=== PATIENT | female | born 1940 | race Hispanic/Latino ===

== ENCOUNTER 2017-10-02 11:16 | Emergency (ER) | payer MEDICARE, BC ==
[2017-10-02] MEDS ORDERED: Meclizine HCl 25 MG TAB ONE (12:02)
[2017-10-02] MEDS ORDERED: Acetaminophen 500 MG TAB ONE (13:08)
== END 2017-10-02 13:07 | disposition home or self-care (01) ==
LOC: SCSER 11:16
DX: R42 Dizziness and giddiness (principal); R00.1 Bradycardia, unspecified; K21.9 Gastro-esophageal reflux disease without esophagitis; F32.9 Major depressive disorder, single episode, unspecified; Z79.899 Other long term (current) drug therapy
CPT/HCPCS: 93005

== ENCOUNTER 2017-10-07 09:49 | Outpatient (CLI) | payer MEDICARE, BC ==
--- NOTE | 2017-10-07 14:56 | MRI ---
MRI BRAIN WITHOUT CONTRAST: Date: 10/07/17 Multiplanar, multisequential imaging of brain obtained without IV enhancement. INDICATION: Memory impairment. COMPARISON: Comparison made to MRI of brain dated 11/30/14. FINDINGS: Mild cortical volume loss has a similar appearance to the prior exam. Ventricles remain of normal siz e and position, and are unchanged. There are scattered hyperintense foci in the white matter of both cerebral hemispheres consistent wit h mild chronic ischemic change. There continues to be a confluent area of T2 and FLAIR hyperintensity in the deep white matter extend ing to the subcortical white matter of the posterior right frontal lobe along the mid portion of the right lateral ventricle. This was described previously and is essentially unchanged. There is no evidence of restricted diffusion. The small focus of blooming artifact seen within the medial aspect of the left frontal lobe posterior ly is again seen. This was described previously and is stable. Considerations include small calcifica tion or focal hemosiderin deposition as noted previously. The intracranial internal carotid arteries and proximal cerebral arteries show flow-voids. Paranasal sinuses and mastoids are clear. IMPRESSION: 1. MRI findings are stable from the prior study of 11/30/14. There is mild chronic ischemic white ma tter changes in both cerebral hemispheres. A confluent area of high T2 signal in the white matter of the right frontal lobe is stable. POS: AUGIE
--- NOTE | 2017-10-11 15:28 | EEG ---
Referring Physician: DR. GILSON REYES EEG # [id number] PROCEDURE: Outpatient electroencephalogram PATIENT NAME: Charity Soler : 1940 DATE EEG DONE: 10/07/2017 INDICATION: Memory loss, vertigo, vision changes. EEG CLASSIFICATION: Normal awake and drowsy. STUDY REPORT: This is a 22-channel digital EEG recording utilizing 10-20 international electrode placement system on a patient who presents with memory loss, vertigo, vision changes. During wakefulness, the background activity consists of moderate amplitude dominant alpha rhythm of 9-10 Hz. It is symmetric and reactive in nature. It is mixed with some myogenic activity representing frontalis and temporalis muscles bilaterally. DROWSINESS AND SLEEP: Subject is able to attain periods of drowsiness with theta activity and decreased myogenic activity. There is no clear sleep recorded during this EEG. There is no asymmetry or paroxysmal activity noted. INDUCTION: HYPERVENTILATION: With good effort results in no significant change in the background activity. PHOTIC STIMULATION: No photic drive seen. EK per minute. IMPRESSION: THIS EEG IS CONSIDERED NORMAL AWAKE AND DROWSY EEG. THERE IS NO CLEAR EPILEPTIFORM ACTIVITY OR FOCAL ABNORMALITY NOTED. CLINICAL CORRELATION RECOMMENDED. Windows Laptop Technician: SHAHNAZ Compliance Professional: [email or web address] CORONA
== END 2017-10-07 09:50 | disposition home or self-care (01) ==
LOC: EEG 09:49
PROVIDERS: ATTEND Student in an Organized Health Care Education/Training Program
DX: R41.3 Other amnesia (principal); R42 Dizziness and giddiness; H53.9 Unspecified visual disturbance; G93.89 Other specified disorders of brain
CPT/HCPCS: 70551; 95816

== ENCOUNTER 2018-01-26 12:30 | Outpatient (CLI) | payer MEDICARE, BC | END 2018-01-26 12:31 | disposition home or self-care (01) | LOC: BICULT 12:30 | PROVIDERS: ATTEND Urology | DX: R31.29 Other microscopic hematuria (principal); N28.89 Other specified disorders of kidney and ureter | CPT/HCPCS: 76770 ==

== ENCOUNTER 2018-02-18 13:11 | Outpatient (CLI) | payer MEDICARE, BC ==
[~2018-02-18 13:11] MED LIST: ISOVUE-370 76%-LOCM 1 ML ONE
== END 2018-02-18 13:12 | disposition home or self-care (01) ==
LOC: BICCT 13:11
PROVIDERS: ATTEND Family Medicine
DX: E04.1 Nontoxic single thyroid nodule (principal); N28.9 Disorder of kidney and ureter, unspecified; K44.9 Diaphragmatic hernia without obstruction or gangrene; K57.90 Diverticulosis of intestine, part unspecified, without perforation or abscess without bleeding; R93.8 Abnormal findings on diagnostic imaging of other specified body structures
CPT/HCPCS: 74170; 76536; 82565

== ENCOUNTER 2018-03-10 18:00 | Outpatient (CLI) | payer MEDICARE, BC | END 2018-03-10 18:01 | disposition home or self-care (01) | LOC: SLEEPLAB 18:00 | PROVIDERS: ATTEND Family Medicine | DX: R53.83 Other fatigue (principal); R06.83 Snoring; G47.33 Obstructive sleep apnea (adult) (pediatric); I10 Essential (primary) hypertension; K21.9 Gastro-esophageal reflux disease without esophagitis; I25.10 Atherosclerotic heart disease of native coronary artery without angina pectoris | CPT/HCPCS: 95806 ==

== ENCOUNTER 2018-03-18 08:54 | Outpatient (CLI) | payer MEDICARE, BC ==
[2018-03-18] MEDS ORDERED: ISOVUE-370 76%-LOCM 1 ML ONE (14:21)
== END 2018-03-18 08:55 | disposition home or self-care (01) ==
LOC: BICCT 08:54
PROVIDERS: ATTEND Internal Medicine Cardiovascular Disease
DX: R09.89 Other specified symptoms and signs involving the circulatory and respiratory systems (principal); R94.30 Abnormal result of cardiovascular function study, unspecified
CPT/HCPCS: 70498

== ENCOUNTER 2018-04-19 19:30 | Outpatient (CLI) | payer MEDICARE, BC | END 2018-04-19 19:31 | disposition home or self-care (01) | LOC: SLEEPLAB 19:30 | PROVIDERS: ATTEND Family Medicine | DX: G47.33 Obstructive sleep apnea (adult) (pediatric) (principal); R53.83 Other fatigue; G47.61 Periodic limb movement disorder | CPT/HCPCS: 95810 ==

== ENCOUNTER 2019-12-08 07:21 | Outpatient (CLI) | payer MEDICARE, BC, OTHER ==
[2019-12-09 16:49] LABS: SARS-CoV-2 MS2 Positive; SARS-CoV-2 N Gene Negative; SARS-CoV-2 S Gene Negative; SARS-CoV-2 orf1ab Negative
== END 2019-12-08 07:22 | disposition home or self-care (01) ==
LOC: LABBT 07:21
PROVIDERS: ATTEND Ophthalmology Retina Specialist
DX: Z01.812 Encounter for preprocedural laboratory examination (principal); Z11.59 Encounter for screening for other viral diseases
CPT/HCPCS: 87635; U0003

== ENCOUNTER 2019-12-12 06:36 | Day surgery (SDC) | payer MEDICARE, BC ==
[2019-12-08 14:11] VITALS: BMI 30.2
[2019-12-12] MEDS ORDERED: EPINEPHrine 0.3 MG in Ophthalmic Irrigation Solution 500 ML IRR SCH (06:45)
[2019-12-12] MEDS ORDERED: Fentanyl 100 MCG/2 ML VIAL ONE (06:56)
[2019-12-12] MEDS ORDERED: Midazolam HCl 2 mg/2 ml Vial ONE (06:56)
[2019-12-12] MEDS ORDERED: Cyclopentolate 1% Opth Drop 2 ML BOT ONE (07:15)
[2019-12-12] MEDS ORDERED: Phenylephrine 2.5% Ophth Soln 5 ML BOT ONE (07:15)
[2019-12-12] MEDS ORDERED: Triamcinolone 40 MG/ML VIAL ONE (08:53)
[2019-12-12] MEDS ORDERED: Maxitrol 0.1% Opth Oint 3.5 GM TUBE ONE (08:53)
[2019-12-12] MEDS ORDERED: PROPOFOL 200 MG/20 ML VIAL ONE (08:53)
[2019-12-12] MEDS ORDERED: Lidocaine 4% PF 5 ML AMP ONE (08:53)
[2019-12-12] MEDS ORDERED: Lidocaine 1% PF 5 ML VIAL ONE (08:53)
[2019-12-12] MEDS ORDERED: Bupivacaine PF 0.75% SDV 10 ML ONE (08:53)
[2019-12-12] MEDS ORDERED: CEFAZOLIN 1 GM VIAL ONE (08:53)
--- NOTE | 2019-12-12 10:03 | OP ---
DATE OF PROCEDURE: 12/12/2019 PREOPERATIVE DIAGNOSIS: Vitreomacular traction, right eye. POSTOPERATIVE DIAGNOSIS: Vitreomacular traction, right eye. PROCEDURES PERFORMED: 1. A 25-gauge pars plana vitrectomy, right eye. 2. Membrane peel, right eye. ESTIMATED BLOOD LOSS: None. SPECIMENS REMOVED: None. COMPLICATIONS: None. ANESTHESIA: MAC with sub-Tenon's block. SUMMARY OF OPERATION: The patient was identified in the preoperative holding area, where the correct eye being the right eye was marked for surgery. The patient was taken to the operating room, where MAC anesthesia was induced. The right eye was prepped and draped in the usual sterile fashion for surgery. An inferonasal conjunctival peritomy was fashioned with Zohaib scissors for administration of sub-Tenon's block. The block consisted of 1:1 ratio of 4% lidocaine and 0.75% Marcaine. A total of 5 mL was administered. A standard 25-gauge pars plana vitrectomy platform was fashioned with trocars placed approximately 3.5 mm from the limbus. The infusion was noted to be within the vitreous cavity prior to being turned on to an infusion pressure of 30 mmHg. The light pipe and microvitrector were introduced in the eye under visualization of the BIOM viewing system. A careful core vitrectomy was performed. Subsequently, Kenalog was injected and a gentle posterior vitreous detachment was created with peeling across the fovea to allow for relaxation of the fovea. Following peeling, significant relaxation of the fovea was noted. A complete peripheral shave vitrectomy was subsequently performed. Following vitrectomy and a 360-degree scleral depressed exam of the periphery revealed no defects. The cannulas were sequentially removed and all sclerotomies were noted to be watertight. Subconjunctival Ancef and Kenalog were injected. The wire-clip lid speculum was removed followed by application of TobraDex ophthalmic ointment and a light patch and shield. The patient tolerated the procedure well, was taken to the outpatient recovery area in good condition. Job ID: [id number]
== END 2019-12-12 09:54 | disposition home or self-care (01) ==
LOC: SDC 06:36
PROVIDERS: ATTEND Ophthalmology Retina Specialist
PROC: 08T43ZZ Resection of Right Vitreous, Percutaneous Approach (ICD-10-PCS; principal; 2019-12-12)
PROC: 08NE3ZZ Release Right Retina, Percutaneous Approach (ICD-10-PCS; 2019-12-12)
DX: H43.821 Vitreomacular adhesion, right eye (principal); I10 Essential (primary) hypertension; K21.9 Gastro-esophageal reflux disease without esophagitis; F32.9 Major depressive disorder, single episode, unspecified; Z79.899 Other long term (current) drug therapy; Z88.1 Allergy status to other antibiotic agents; Z88.2 Allergy status to sulfonamides; Z88.5 Allergy status to narcotic agent; Z91.040 Latex allergy status
CPT/HCPCS: J0171; J0690; J2001; J2250; J2704; J3010; J3301; J3490

== ENCOUNTER 2020-03-08 06:31 | Outpatient (CLI) | payer MEDICARE, BC, OTHER ==
[2020-03-08 16:28] LABS: Anion Gap 14 mmol/L (10-20); BUN (Urea Nitrogen) 8 mg/dL (9.8-20.1); Calc. Creatinine Clearance 0 mL/min (70-130); Calcium 10.2 mg/dL (7.8-10.44); Carbon Dioxide 27 mmol/L (23-31); Chloride 106 mmol/L (98-107); Estimated GFR-MDRD 49; Glucose 106 mg/dL (83-110); Potassium 3.9 mmol/L (3.5-5.1); Sodium 143 mmol/L (136-145)
[2020-03-09 12:17] LABS: SARS-CoV-2 MS2 Positive; SARS-CoV-2 N Gene Negative; SARS-CoV-2 S Gene Negative; SARS-CoV-2 by NAA Not Detected (NotDetected); SARS-CoV-2 orf1ab Negative
--- NOTE | 2020-03-13 20:14 | EKG ---
Test Reason : Blood Pressure : / mmHG Vent. Rate : 052 BPM Atrial Rate : 052 BPM P-R Int : 202 ms QRS Dur : 092 ms QT Int : 502 ms P-R-T Axes : 038 -23 -10 degrees QTc Int : 466 ms Sinus bradycardia Poor anterior R wave progression Abnormal ECG Confirmed by HILLARY MICHELLE, DR. Stock ([id number]) on 03/13/2020 8:14:16 PM Referred By: LORENZO Confirmed By:DR. Dayami THORNTON MD
== END 2020-03-08 06:32 | disposition home or self-care (01) ==
LOC: LABBT 06:31
PROVIDERS: ATTEND Surgery
DX: Z01.818 Encounter for other preprocedural examination (principal); Z20.828 Contact with and (suspected) exposure to other viral communicable diseases; K44.9 Diaphragmatic hernia without obstruction or gangrene
CPT/HCPCS: 80048; 85025; 93005; U0003; 87635; 93010

== ENCOUNTER 2020-03-12 06:49 | Observation (INO) | payer MEDICARE, BC ==
[2020-03-07 13:59] VITALS: BMI 31.9
[2020-03-12] MEDS ORDERED: Fentanyl 250 MCG/5 ML VIAL ONE (08:53)
[2020-03-12] MEDS ORDERED: PROPOFOL 200 MG/20 ML VIAL ONE (09:02)
[2020-03-12] MEDS ORDERED: Ondansetron PF 4 MG/2 ML Vial ONE (09:02)
[2020-03-12] MEDS ORDERED: Succinylcholine Chloride 20 MG/ML 10 ml SYRINGE FS ONE (09:02)
[2020-03-12] MEDS ORDERED: EPHEDRINE 25 MG/5 ML SYRINGE ONE (09:02)
[2020-03-12] MEDS ORDERED: Rocuronium Bromide 10 MG/ML (10ML VIAL) ONE (09:02)
[2020-03-12] MEDS ORDERED: Lidocaine 1% PF 5 ML VIAL ONE (09:02)
[2020-03-12] MEDS ORDERED: Labetalol HCl 100 MG/20 ML VIAL ONE (09:02)
[2020-03-12] MEDS ORDERED: Glycopyrrolate 0.2 MG/ML 5 ML SYRINGE ONE ×2 (09:02)
[2020-03-12] MEDS ORDERED: Lidocaine 1% w/Epinephrine 1:100K 20 ML VIAL ONE (09:07)
[2020-03-12] MEDS ORDERED: Bupivacaine 0.25% HCL 30 ML VIAL ONE (09:07)
[2020-03-12] MEDS ORDERED: Promethazine HCl 25 MG/ML VIAL IM PRN ×2 (10:55→11:15)
[2020-03-12] MEDS ORDERED: Promethazine HCl 25 MG/ML VIAL SLOW IVP PRN (10:55)
[2020-03-12] MEDS ORDERED: Ondansetron HCl/PF 4 MG/2 ML Vial IVP PRN (10:55)
[2020-03-12] MEDS ORDERED: Morphine 2 MG/ML VIAL SLOW IVP PRN (11:15)
[2020-03-12] MEDS ORDERED: Dextrose 50% Abboject 50 ML SYRINGE SLOW IVP PRN (11:15)
[2020-03-12] MEDS ORDERED: Acetaminophen 325 MG/10.15 ML UDCUP PO PRN (11:15)
[2020-03-12] MEDS ORDERED: Ondansetron PF 4 MG/2 ML Vial IVP PRN (11:15)
[2020-03-12] MEDS ORDERED: hydrALAZINE 20 MG/ML VIAL SLOW IVP PRN (11:15)
[2020-03-12] MEDS ORDERED: Morphine 4 MG/ML VIAL SLOW IVP PRN (11:15)
[2020-03-12] MEDS ORDERED: Dextrose 5% in Water 1,000 ML IV PRN (11:15)
[2020-03-12] MEDS ORDERED: Fentanyl 100 MCG/2 ML VIAL ONE ×2 (11:19→11:48)
[2020-03-12] MEDS ORDERED: Pantoprazole 40 MG VIAL IVP SCH (12:00)
[2020-03-12] MEDS: Sodium Chloride 0.9% 1,000 ML IV SCH (13:38)
[2020-03-12] MEDS: traMADol HCl 50 MG TAB PO PRN ×2 (14:36→20:55)
[2020-03-12] MEDS ORDERED: Escitalopram Oxalate 10 mg Tablet PO SCH (21:00)
[2020-03-12] MEDS ORDERED: Leflunomide 10 mg Tablet PO SCH (21:00)
[2020-03-12] MEDS ORDERED: Enoxaparin Sodium 40 MG/0.4 ML SYRINGE SC SCH (21:00)
[2020-03-13] MEDS: Sodium Chloride 0.9% 1,000 ML IV SCH ×2 (03:06→14:54)
[2020-03-13] MEDS: traMADol HCl 50 MG TAB PO PRN ×3 (03:08→15:00)
--- NOTE | 2020-03-13 08:48 | PDOC.GSPN ---
Surgery Progress Note: Subj - Subjective Narrative: Ms. oSler is a 80 year old female who is post op day 1 from a laprascopic hiatal hernia repair. She complains of persistent abdominal soreness, particularly on the left side. She also complains of left shoulder pain since waking up from surgery. She did not sleep well last night secondary to pain. She has been able to ambulate and void without difficulty or pain. She is using the incentive spirometry. She is tolerating a full liquid diet without any nausea or vomiting. She reports that her acid reflux symptoms are improved currently. Denies any fever, chills, nausea, vomiting, diarrhea, dysuria, SOB, cough Surgery Progress Note: Obj - Vital signs Vital signs: Vital Signs - Most Recent Temp Pulse Resp BP Pulse Ox 98.0 F 71 16 134/62 92 L 03/13/20 07:19 03/13/20 07:19 03/13/20 07:19 03/13/20 07:19 03/13/20 07:19 - Physical Exam General: no distress, well developed, well nourished Cardiovascular: regular rate and rhythm Respiratory: clear to auscultation Abdomen: soft, positive bowel sounds, appropriately tender, other (incisional wounds with surrounding purple bruising, but no signs of infection) Surgery Progress Note: A/P - Plan Plan: s/p laprascopic hiatal hernia repair with Lester fundoplication and mesh placement: Patient is tolerating a full liquid diet well. Acid reflux symptoms are improved. Some mild abdominal tenderness/soreness. Will continue with antiemetics, PPI, and pain regime. Will discharge patient today and have her follow up in the office in 2 weeks.
[2020-03-13] MEDS ORDERED: Amlodipine 5 MG TAB PO SCH (09:00)
[2020-03-13] MEDS ORDERED: Pantoprazole 40 MG VIAL IVP SCH (09:00)
[2020-03-13] MEDS ORDERED: Losartan 25 MG TAB PO SCH (09:00)
[2020-03-13] MEDS ORDERED: Donepezil HCl 10 MG TAB PO SCH (09:00)
--- NOTE | 2020-03-13 11:24 | OP ---
DATE OF PROCEDURE: 03/12/2020 PREOPERATIVE DIAGNOSIS: Paraesophageal hiatal hernia. POSTOPERATIVE DIAGNOSIS: Paraesophageal hiatal hernia. PROCEDURE PERFORMED: Laparoscopic hiatal hernia repair with mesh and Flavio fundoplication. ANESTHESIA: General. ESTIMATED BLOOD LOSS: Minimal. COMPLICATIONS: None. SPECIMEN: None. FINDINGS: Normal postoperative EGD. TECHNIQUE: The patient was taken to the operating room and laid supine on the operating room table. After general anesthetic was obtained, the abdomen was prepped and draped in a sterile fashion. Left subcostal 5-mm Optiview trocar was placed in usual fashion without injury and high-flow pneumoperitoneum was obtained. A 5-mm port was placed above the umbilicus. Right and left abdominal 5 mm ports were all placed. Subcostal port switched out to an 8 mm port. All ports were placed under direct visualization. The Snake Liver retractor was brought into the right lower quadrant port and used to raise the liver off the GE junction. The gastrohepatic ligament was opened exposing the right umer of the diaphragm. There was a replaced right hepatic artery that was avoided during the dissection. The mediastinum was entered along the medial aspect of the right umer and the circumferential dissection of the esophagus was performed. The fundus of the stomach was up into the chest cavity, this was able to be dissected down. The stomach was then flipped over and the upper short gastrics were taken down exposing the left umer, posterior fundus, angle of His were completely dissected and the mediastinum was entered on the left side. The circumferential dissection of the esophagus was then finished bringing the GE junction and fundus all back into the abdominal cavity. A window was made posterior to the GE junction. The posterior crura were closed using two interrupted Ethibond sutures in the Ti-KNOT system. The tissue strength was less than ideal and so a piece of Strattice mesh was cut to 4 x 6 cm and placed over the posterior repair. It was affixed to the posterior diaphragmatic repair using Tisseel and the Tisseel mat. The fundus of the stomach was able to be passed through the posterior window and brought up anteriorly to form a 360-degree wrap. This was not twisted. There was no ischemia to it. It was a floppy wrap. Ethibond sutures were used to suture the wrap over the top anteriorly. The second suture obtained a small amount of the esophagus to hold the wrap in place. There was no ongoing bleeding. No damage to any intraabdominal structures. A 44-bougie had been placed for the wrap and hiatal hernia repair thus was removed. EGD scope was passed through esophagus, stomach, to the level of duodenum without obstruction, withdrawn into the proximal stomach; as it passes to the diaphragmatic hiatus, there was no significant stenosis. As it passed through the wrap at the GE junction, there was obvious wrap effect; however, it was not too tight. The EGD scope was used to decompress the stomach, it was pulled and removed. Liver retractor was removed without injury. All port sites were infiltrated using local anesthetic. All ports were removed under camera visualization. Pneumoperitoneum was let down. A 4-0 Monocryl and Dermabond used to close all skin incisions. The patient was sent to Recovery in stable condition. All instrument counts, needle counts, and lap counts were correct. Job ID: [id number]
[2020-03-13 15:44] VITALS: BP 141/61; TEMP 97.9
--- NOTE | 2020-03-13 22:16 | DIS ---
DATE OF ADMISSION: 03/12/2020 DATE OF DISCHARGE: 03/13/2020 ADMIT DIAGNOSIS: Hiatal hernia. DISCHARGE DIAGNOSIS: Hiatal hernia. PROCEDURE PERFORMED: Laparoscopic hiatal hernia repair with mesh and fundoplication by Dr. Olson without complication. CONDITION ON DISCHARGE: Improved. STAFF: Danny Olson MD HOSPITAL COURSE: On postop day #1, the patient is doing well. She is tolerating a liquid diet. She is complaining of some left shoulder pain. She is ambulatory. She will be discharged home. She will follow up with me in the office in 2 weeks. Job ID: [id number]
== END 2020-03-13 15:50 | disposition home or self-care (01) ==
LOC: SDC 06:49 → MERGE 10:00 → SURG A 10:53
PROVIDERS: ADMIT Surgery; ATTEND Surgery
PROC: 0BUT4JZ Supplement Diaphragm with Synthetic Substitute, Percutaneous Endoscopic Approach (ICD-10-PCS; principal; 2020-03-12)
PROC: 0DV44ZZ Restriction of Esophagogastric Junction, Percutaneous Endoscopic Approach (ICD-10-PCS; 2020-03-12)
DX: K44.9 Diaphragmatic hernia without obstruction or gangrene (principal); I10 Essential (primary) hypertension; I25.10 Atherosclerotic heart disease of native coronary artery without angina pectoris; E78.5 Hyperlipidemia, unspecified; E66.9 Obesity, unspecified; F32.9 Major depressive disorder, single episode, unspecified; Z88.1 Allergy status to other antibiotic agents; Z79.82 Long term (current) use of aspirin; Z79.899 Other long term (current) drug therapy; Z88.2 Allergy status to sulfonamides; Z88.4 Allergy status to anesthetic agent; Z88.5 Allergy status to narcotic agent; Z91.040 Latex allergy status; Z91.048 Other nonmedicinal substance allergy status
CPT/HCPCS: 43282; Q4130; 96361; 96372; 96375; 96376; C9113; G0378; J0690; J1650; J2405; J2704; J3010; S0020

== ENCOUNTER 2020-03-25 14:05 | Emergency (ER) | payer MEDICARE, BC ==
[~2020-03-25 14:05] MED LIST changes: -ISOVUE-370 76%-LOCM 1 ML ONE; +Iopamidol-370 76% 500 ML 1 ML ONE
[2020-03-25 15:02] LABS: #Basophils 0.1 thou/uL (0.0-0.2); #Eosinphils 0.2 thou/uL (0.0-0.7); #Lymphocytes 1.2 thou/uL (1.20-3.40); #Monocytes 0.4 thou/uL (0.11-0.59); #Neutrophils 4.1 thou/uL (1.40-6.50); %Basophils 1.3 % (0.0-1.0); %Eosinophils 3.2 % (0.0-10.0); %Lymphocytes 20.2 % (21.0-51.0); %Monocytes 6.8 % (0.0-10.0); %Neutrophils 68.5 % (42.0-75.0); Hemoglobin 12.3 g/dL (12.0-16.0); Mean Corpuscular Hemoglobin 32.6 pg (27.0-31.0); Mean Corpuscular Volume 98.6 fL (78.0-98.0); Platelet Count 170 thou/uL (130-400); RBC Distribution Width 13.6 % (11.5-14.5); Red Blood Cell (RBC) Count 3.77 mill/uL (4.20-5.40)
--- NOTE | 2020-03-25 15:05 | RAD ---
PORTABLE CHEST 1 VIEW: Date: 03/25/2020 Time 1430 hours HISTORY: Epigastric pain. Patient had hernia surgery 2 weeks ago. COMPARISON: 07/02/2016. FINDINGS: The heart is enlarged. The aorta is tortuous. No focal areas of consolidation, pneumothoraces, ranjith pulmonary edema, or pleural effusions are seen. There are postop changes of right rotator cuff repair . IMPRESSION: No acute process. POS: OFF
[2020-03-25 15:27] LABS: ALT (SGPT) 19 U/L (8-55); AST (SGOT) 22 U/L (5-34); Albumin 3.5 g/dL (3.4-4.8); Alkaline Phosphatase 85 U/L (40-110); Anion Gap 14 mmol/L (10-20); BUN (Urea Nitrogen) 8 mg/dL (9.8-20.1); Bilirubin, Total 0.6 mg/dL (0.2-1.2); CK (CPK) 58 U/L (29-168); Calc. Creatinine Clearance 0 mL/min (70-130); Calcium 9.4 mg/dL (7.8-10.44); Carbon Dioxide 22 mmol/L (23-31); Chloride 109 mmol/L (98-107); Estimated GFR-MDRD 55; Globulin 2.7 g/dL (2.4-3.5); Glucose 123 mg/dL (83-110); Lipase 17 U/L (8-78); Protein, Total 6.2 g/dL (6.0-8.3); Sodium 140 mmol/L (136-145)
--- NOTE | 2020-03-25 16:12 | CT ---
CT ABDOMEN AND PELVIS WITH IV CONTRAST 03/25/2020 CLINICAL INFORMATION: Diarrhea. Weakness. COMPARISON: 02/18/2018 Technique: Multiple contiguous axial CT images are obtained through the abdomen and pelvis with IV contrast. Cor onal reformatted images are provided. FINDINGS: Lower Chest: Tiny bilateral pleural effusions are seen. There has been interval postoperative changes related to repair of hiatal hernia. There is fluid seen within the lower posterior mediastinum just posterior to the level of the esophagus. Vessels: Minimal vascular calcifications in the abdominal aorta. The abdominal aorta is normal in neelam iber. Abdomen: Portal vein:Patent Gallbladder: Surgically absent. Liver: within normal limits. Spleen: within normal limits. Pancreas: within normal limits. Adrenals: within normal limits. Kidneys: Lobulated appearance of each kidney. No enhancing renal lesion is seen, and there is no hydr onephrosis. Bowel: There is anastomosis in the region of the rectum. There is colonic diverticulosis. Pericolonic inflammatory changes are seen adjacent to the ascending colon in the region of multiple colonic diverticuli. In addition, there is suggested mild areas of thickening involving the ascending colon, and these findings are worrisome for diverticulitis. Appendix: Not visualized, but no secondary signs are seen to suggest appendicitis. Peritoneum: No ascites or free air; no fluid collection. Mesentery and Retroperitoneum: No enlarged mesenteric or retroperitoneal lymph nodes. Abdominal Wall: Tiny fat-containing subumbilical ventral abdominal wall hernia. Pelvis: Reproductive Organs: Coarse dense calcifications are seen in the uterus likely to calcified uterine f ibroids. Bladder: within normal limits. Bones: Degenerative changes in the thoracic and lumbar spine with grade 1 anterolisthesis of L4 on L5 measuring 9 mm. IMPRESSION: 1. Evidence of diverticulitis involving the ascending colon. 2. Tiny bilateral pleural effusions. 3. Postoperative changes related to surgical repair of a hiatal hernia with findings likely due to fu ndoplication type procedure. There is fluid seen within the posterior inferior mediastinum. 4. Postcholecystectomy changes. 5. Evidence of an anastomotic suture in the region of the rectum.
== END 2020-03-25 16:55 | disposition home or self-care (01) ==
LOC: ERS 14:05
DX: K57.32 Diverticulitis of large intestine without perforation or abscess without bleeding (principal); K21.9 Gastro-esophageal reflux disease without esophagitis; M19.90 Unspecified osteoarthritis, unspecified site; F32.9 Major depressive disorder, single episode, unspecified; Z79.82 Long term (current) use of aspirin; Z79.899 Other long term (current) drug therapy
CPT/HCPCS: 36415; 71045; 74177; 80053; 82550; 83690; 84484; 85025; 93005; Q9967

== ENCOUNTER 2020-03-26 14:27 | Inpatient (IN) | payer MEDICARE, BC, OTHER ==
[2020-03-26] MEDS ORDERED: Sodium Chloride 0.9% 1,000 ML IV SCH (15:30)
[2020-03-26] MEDS ORDERED: Ondansetron ODT 4 MG TAB PO PRN (15:31)
[2020-03-26] MEDS ORDERED: Ondansetron PF 4 MG/2 ML Vial IVP PRN ×2 (15:31→19:59)
[2020-03-26] MEDS ORDERED: Piperacillin/Tazobactam 3.375 GM VIAL ONE (16:21)
[2020-03-26] MEDS: Piperacillin/Tazobactam 3.375 GM in Sodium Chloride 0.9% 100 ML IVPB SCH ×2 (16:33→20:02)
[2020-03-26] MEDS ORDERED: Morphine 4 MG/ML VIAL SLOW IVP PRN (19:59)
[2020-03-26] MEDS ORDERED: Promethazine HCl 25 MG/ML VIAL IM PRN (19:59)
[2020-03-26] MEDS ORDERED: Dextrose 50% Abboject 50 ML SYRINGE SLOW IVP PRN (19:59)
[2020-03-26] MEDS ORDERED: Acetaminophen 325 MG TAB PO PRN (19:59)
[2020-03-26] MEDS ORDERED: Morphine 2 MG/ML VIAL SLOW IVP PRN (19:59)
[2020-03-26] MEDS ORDERED: hydrALAZINE 20 MG/ML VIAL SLOW IVP PRN (19:59)
[2020-03-26] MEDS ORDERED: Dextrose 5% in Water 1,000 ML IV PRN (19:59)
[2020-03-26] MEDS: D5 1/2 NS w/20 mEq KCL 1,000 ML IV SCH (20:01)
[2020-03-26] MEDS ORDERED: traMADol HCl 50 MG TAB PO PRN (20:02)
[2020-03-26] MEDS: Escitalopram Oxalate 10 mg Tablet PO SCH (20:29)
[2020-03-26] MEDS: Leflunomide 10 mg Tablet PO SCH (20:29)
[2020-03-26 21:11] VITALS: BMI 25.0
--- NOTE | 2020-03-27 01:14 | HP ---
CHIEF COMPLAINT: Nausea, diarrhea, weakness. HISTORY OF PRESENT ILLNESS: This is a 80-year-old female with a history of recent large paraesophageal hiatal hernia repair with mesh and fundoplication for severe dysphagia and acid reflux. She developed dizziness, weakness that started two days ago. She was seen in emergency department last night with abdominal pain mostly in the upper abdomen, but also in the right abdomen, made worse by breathing deep. She was seen at the [facility], where CT of the abdomen showed question of ascending colon diverticulitis, normal postop changes, no pneumonia. Chest x-ray was clear. Labs were within normal limits. She is being admitted for weakness, nausea, and volume resuscitation. She stated that she has had difficulty with solid foods going down, even liquids were difficult today. PAST MEDICAL HISTORY: Includes hypertension, chronic pain, GERD, hiatal hernia, thyroid nodule, mild obstructive sleep apnea. PAST SURGICAL HISTORY: Left shoulder, cholecystectomy, left knee arthroscopy, forearm reconstruction for trauma, hemorrhoidectomy, and cardiac stent placement. MEDICATIONS: Taken daily, see list. ALLERGIES: INCLUDE CODEINE, CIPRO, AND LATEX. REVIEW OF SYSTEMS: Otherwise negative. PHYSICAL EXAMINATION: HEENT: Sclerae are anicteric. Oropharynx clear. NECK: No lymphadenopathy. CHEST: Clear. HEART: Regular rate. ABDOMEN: Soft. Her wounds are healing well without infection. She has some mild ecchymoses around them. EXTREMITIES: No ischemia or edema to extremities. IMAGING STUDIES: CT scan yesterday showed postop changes in the upper abdomen, small amount of fluid without air in the mediastinum and area of previous hernia repair. Questionable ascending colon diverticulitis. Chest x-ray normal. ASSESSMENT: Nausea, weakness, severe diarrhea, status post hiatal hernia repair. PLAN: Admit for IV fluid resuscitation. Check her stool for C diff. We will do IV Zosyn for now. I wonder whether the Augmentin and Flagyl were contributing to her nausea. We will have Physical Therapy work with her tomorrow. I suspect she will feel better after some volume resuscitation. Job ID: [id number]
[2020-03-27] MEDS: Piperacillin/Tazobactam 3.375 GM in Sodium Chloride 0.9% 100 ML IVPB SCH (03:00)
[2020-03-27 06:08] LABS: Anion Gap 12 mmol/L (10-20); BUN (Urea Nitrogen) 6 mg/dL (9.8-20.1); Calc. Creatinine Clearance 57 mL/min (70-130); Calcium 8.7 mg/dL (7.8-10.44); Carbon Dioxide 20 mmol/L (23-31); Chloride 111 mmol/L (98-107); Estimated GFR-MDRD 63; Glucose 97 mg/dL (83-110); Potassium 3.7 mmol/L (3.5-5.1); Sodium 139 mmol/L (136-145)
[2020-03-27] MEDS: Pantoprazole 40 MG VIAL IVP SCH (08:05)
[2020-03-27] MEDS: D5 1/2 NS w/20 mEq KCL 1,000 ML IV SCH (08:05)
[2020-03-27] MEDS ORDERED: D5 1/2 NS w/20 mEq KCL 1,000 ML IV SCH (08:05)
[2020-03-27] MEDS: Losartan 25 MG TAB PO SCH (08:05)
[2020-03-27] MEDS: Amlodipine 5 MG TAB PO SCH (08:05)
[2020-03-27] MEDS: Donepezil HCl 10 MG TAB PO SCH (08:05)
[2020-03-27] MEDS: Enoxaparin Sodium 40 MG/0.4 ML SYRINGE SC SCH (08:05)
--- NOTE | 2020-03-27 08:10 | PRG ---
DATE OF SERVICE: 03/27/2020 SUBJECTIVE: Ms. Soler was admitted for nausea, diarrhea, failure to thrive. She feels slightly improved, but she is still complaining of fairly significant diarrhea. Her Clostridium difficile is negative. OBJECTIVE: VITAL SIGNS: She is afebrile. Vital signs are stable. ABDOMEN: Soft, nontender. Her wounds are healing well. ASSESSMENT: Nausea, improved; diarrhea, persistent; weakness, improved. PLAN: She is complaining of some muscle spasm in the back. We will write for a little muscle relaxant. We will start probiotic, discontinue antibiotics. Job ID: [id number]
[2020-03-27] MEDS: Cyclobenzaprine 10 MG TAB PO PRN ×2 (08:17→16:01)
[2020-03-27] MEDS: Saccharomyces boulardii 250 MG CAP PO SCH (08:17)
[2020-03-27 12:02] LABS: SARS-CoV-2 MS2 Positive; SARS-CoV-2 N Gene Negative; SARS-CoV-2 S Gene Negative; SARS-CoV-2 by NAA Not Detected (NotDetected); SARS-CoV-2 orf1ab Negative
[2020-03-27] MEDS: Leflunomide 10 mg Tablet PO SCH (21:22)
[2020-03-27] MEDS: Escitalopram Oxalate 10 mg Tablet PO SCH (21:22)
[2020-03-28] MEDS: Amlodipine 5 MG TAB PO SCH (08:12)
[2020-03-28] MEDS: Losartan 25 MG TAB PO SCH (08:13)
[2020-03-28] MEDS: Donepezil HCl 10 MG TAB PO SCH (08:13)
[2020-03-28] MEDS: Enoxaparin Sodium 40 MG/0.4 ML SYRINGE SC SCH (08:13)
[2020-03-28] MEDS: Pantoprazole 40 MG VIAL IVP SCH (08:14)
[2020-03-28] MEDS: Saccharomyces boulardii 250 MG CAP PO SCH (08:14)
[2020-03-28] MEDS ORDERED: Diphenoxylate HCl/Atropine Tablet PO PRN (10:10)
[2020-03-28] MEDS ORDERED: Diphenoxylate HCl/Atropine Tablet PO SCH (10:15)
--- NOTE | 2020-03-28 10:26 | PRG ---
DATE OF SERVICE: SUBJECTIVE: Ms. Soler states that her back pain is slightly improved. She has no abdominal pain. She is still concerned about her diarrhea. Her C diff was negative. OBJECTIVE: VITAL SIGNS: She is afebrile. Vital signs are stable. ABDOMEN: Soft, minimally distended, nontender. Wounds are healing well. ASSESSMENT: 1. Nausea, vomiting, weakness. 2. Diarrhea, Clostridium difficile negative. PLAN: We will add Lomotil. Continue GI soft diet. Continue to ambulate today home versus shelter tomorrow. Job ID: [id number]
[2020-03-28] MEDS: Cyclobenzaprine 10 MG TAB PO PRN ×2 (11:52→20:22)
[2020-03-28] MEDS: Leflunomide 10 mg Tablet PO SCH (20:16)
[2020-03-28] MEDS: Escitalopram Oxalate 10 mg Tablet PO SCH (20:16)
[2020-03-29] MEDS: Amlodipine 5 MG TAB PO SCH (08:19)
[2020-03-29] MEDS: Losartan 25 MG TAB PO SCH (08:19)
[2020-03-29] MEDS: Donepezil HCl 10 MG TAB PO SCH (08:19)
[2020-03-29] MEDS: Enoxaparin Sodium 40 MG/0.4 ML SYRINGE SC SCH (08:19)
[2020-03-29] MEDS: Saccharomyces boulardii 250 MG CAP PO SCH (08:20)
[2020-03-29] MEDS: Pantoprazole 40 MG VIAL IVP SCH (08:20)
[2020-03-29 16:04] VITALS: BP 129/82; TEMP 98.4
--- NOTE | 2020-04-01 06:34 | DIS ---
DATE OF ADMISSION: 03/28/2020 DATE OF DISCHARGE: 03/29/2020 DIAGNOSES: Nausea, diarrhea, failure to thrive, status post hiatal hernia repair by Wesley. STAFF: Dr. Olson. CONDITION ON DISCHARGE: Improved. HOSPITAL COURSE: The patient was admitted. We put her on some IV fluids, she felt better. She also had some back spasms that Flexeril helped with. She tolerated regular diet without difficulty. Her diarrhea improved with one dose of Lomotil. She is being discharged home. She can take Imodium once a day p.r.n. more than five liquid stools. Her Clostridium difficile was negative. I sent Flexeril over to her pharmacy, but encouraged her not to take it more than once a day. She will follow up with me in 2 weeks. Job ID: [id number]
== END 2020-03-29 16:22 | disposition home or self-care (01) | DRG 948 ==
LOC: ERS 14:27 → ERHOLD 14:54 → T4-A 19:40 → OBSVTOIN 03-28 08:00
PROVIDERS: ADMIT Surgery; ATTEND Surgery
DX: R53.1 Weakness (principal); R19.7 Diarrhea, unspecified; K21.9 Gastro-esophageal reflux disease without esophagitis; E86.0 Dehydration; R11.2 Nausea with vomiting, unspecified; I10 Essential (primary) hypertension; G47.33 Obstructive sleep apnea (adult) (pediatric); K44.9 Diaphragmatic hernia without obstruction or gangrene; G89.29 Other chronic pain; R62.7 Adult failure to thrive; Z90.49 Acquired absence of other specified parts of digestive tract; Z88.6 Allergy status to analgesic agent; Z91.040 Latex allergy status; Z88.1 Allergy status to other antibiotic agents; Z95.5 Presence of coronary angioplasty implant and graft; Z98.890 Other specified postprocedural states; Z68.25 Body mass index [BMI] 25.0-25.9, adult; Z88.2 Allergy status to sulfonamides; Z79.82 Long term (current) use of aspirin; Z79.899 Other long term (current) drug therapy
CPT/HCPCS: 36415; 71045; 74177; 80048; 80053; 82550; 83690; 84484; 85025; 87324; 87449; 87635; 93005; 96372; 96374; 96375; 96376; C9113; G0378; J1650; J2543; J3480; J3490; Q9967; U0003

== ENCOUNTER 2020-04-26 07:26 | Outpatient (CLI) | payer MEDICARE, BC ==
--- NOTE | 2020-04-26 08:55 | CT ---
CT abdomen and pelvis with IV and oral contrast HISTORY: Diarrhea. Lower abdomen pain. COMPARISON: 03/25/2020. FINDINGS: Postoperative changes at the GE junction are again demonstrated with a small hiatal hernia. Small amount of fluid at the lower posterior mediastinum adjacent to the lower esophagus and hiatal hernia is similar in appearance to the prior study. No complication of the fluid is apparent. Gallbladder is surgically absent. Solid organs of the abdomen are intact. An irregular shaped 1.7 cm calcification associated with the left side of the uterine body likely represents a degenerative fibroid. Large amount stool distends the rectum. Diverticula arise from the colon. Area of inflammati on involving the right colon on the prior study has resolved with minimal residual fat stranding. At the lower left colon, there is subtle circumferential wall thickening with minimal adjacent fat st randing. No free air or free fluid. Degenerative changes of lumbar spine. Urinary bladder is unremarkable. IMPRESSION : Very subtle wall thickening/inflammation involving the lower left colon/sigmoid colon. Resolving/mini mal diverticulitis? No evidence of complication. Near complete resolution of the previously described inflammation associated with the right colon. Small amount of fluid at the lower mediastinum adjacent to the GE junction is stable without evidence of complication. Mild fibroid involvement of the uterus.
[2020-04-26] MEDS ORDERED: Iopamidol 370 76% 100 ML VIAL ONE (15:22)
== END 2020-04-26 07:27 | disposition home or self-care (01) ==
LOC: CT 07:26
PROVIDERS: ATTEND Physician Assistant Medical
DX: N39.0 Urinary tract infection, site not specified (principal); R19.7 Diarrhea, unspecified; R10.30 Lower abdominal pain, unspecified; R10.13 Epigastric pain; D25.9 Leiomyoma of uterus, unspecified
CPT/HCPCS: 74177; 82565; Q9967

== ENCOUNTER 2021-04-21 14:34 | Outpatient (CLI) | payer MEDICARE, BC | END 2021-04-21 14:35 | disposition home or self-care (01) | LOC: RAD 14:34 | PROVIDERS: ATTEND Orthopaedic Surgery | DX: M54.50 Low back pain, unspecified (principal); M47.816 Spondylosis without myelopathy or radiculopathy, lumbar region | CPT/HCPCS: 72100 ==

== ENCOUNTER 2021-06-20 13:12 | Outpatient (CLI) | payer MEDICARE, BC | END 2021-06-20 13:13 | disposition home or self-care (01) | LOC: RAD 13:12 | PROVIDERS: ATTEND Internal Medicine Gastroenterology | DX: K58.9 Irritable bowel syndrome, unspecified (principal); R13.10 Dysphagia, unspecified; K86.81 Exocrine pancreatic insufficiency; F43.9 Reaction to severe stress, unspecified; K44.9 Diaphragmatic hernia without obstruction or gangrene | CPT/HCPCS: 74220 ==

== ENCOUNTER 2021-07-03 14:57 | Outpatient (CLI) | payer MEDICARE, BC ==
[2021-07-04 11:37] LABS: SARS-CoV-2 PCR by NAA Not Detected (NotDetected)
== END 2021-07-03 14:58 | disposition home or self-care (01) ==
LOC: LABBT 14:57
PROVIDERS: ATTEND Internal Medicine Gastroenterology
DX: Z01.812 Encounter for preprocedural laboratory examination (principal); R13.10 Dysphagia, unspecified; R93.3 Abnormal findings on diagnostic imaging of other parts of digestive tract; Z20.822 Contact with and (suspected) exposure to COVID-19
CPT/HCPCS: U0003; U0005

== ENCOUNTER → 2021-07-07 | Day surgery (SDC) | payer MEDICARE, BC | LOC: SDC 12:33 | PROVIDERS: ATTEND Internal Medicine Gastroenterology | DX: R13.10 Dysphagia, unspecified (principal); R93.3 Abnormal findings on diagnostic imaging of other parts of digestive tract; Z88.1 Allergy status to other antibiotic agents; Z88.2 Allergy status to sulfonamides; Z88.4 Allergy status to anesthetic agent; Z88.5 Allergy status to narcotic agent; Z91.040 Latex allergy status | CPT/HCPCS: 91010 ==

== ENCOUNTER 2021-08-06 10:23 | Outpatient (CLI) | payer MEDICARE, BC ==
[2021-08-06 12:30] LABS: Bilirubin Neg (Negative); Blood, Urine Negative (Negative); Clarity Clear (Clear); Glucose, Urine (Dipstick) Normal (Negative); Ketone, Urine Negative (Negative); Leukocyte Negative (Negative); Nitrite Negative (Negative); Protein, Urine (Dipstick) Negative (Neg-Trace); Urobilinogen Normal mg/dL (Less than 2)
[2021-08-06 12:34] LABS: Hemoglobin 13.1 g/dL (12.0-15.5); Mean Corpuscular HGB CONC 32.7 g/dL (32.0-36.0); Mean Corpuscular Hemoglobin 32.2 pg (27.0-33.0); Mean Corpuscular Volume 98.5 fl (81.6-98.3); Mean Platelet Volume 11.3 fl (7.4-10.4); Platelet Count 161 10x3/uL (150-450); RBC Distribution Width 13.7 % (11.5-14.5); Red Blood Cell (RBC) Count 4.07 10x6/uL (3.90-5.03); White Blood Cell (WBC) Count 4.6 10x3/uL (3.5-10.5)
[2021-08-06 12:40] LABS: Bacteria/HPF None Seen HPF (None Seen); RBC/HPF 0-3 HPF (0-3); Squamous Epithelial 0-3 HPF (0-3); WBC/HPF 0-3 HPF (0-3)
[2021-08-06 12:47] LABS: INR-International Normal Ratio 0.9; PTT 24.1 sec (22.0-33.0); Prothrombin Time 10.5 sec (9.5-12.1)
[2021-08-06 12:51] LABS: Anion Gap 13 mmol/L (10-20); BUN (Urea Nitrogen) 10 mg/dL (9.8-20.1); Calc. Creatinine Clearance 0 mL/min (70-130); Calcium 11.5 mg/dL (7.8-10.44); Carbon Dioxide 29 mmol/L (23-31); Chloride 106 mmol/L (98-107); Glucose 94 mg/dL (83-110); Potassium 4.2 mmol/L (3.5-5.1); Sodium 144 mmol/L (136-145)
[2021-08-06 17:42] LABS: SARS-CoV-2 PCR by NAA Not Detected (NotDetected)
== END 2021-08-06 10:24 | disposition home or self-care (01) ==
LOC: LABBT 10:23
PROVIDERS: ATTEND Urology
DX: Z01.818 Encounter for other preprocedural examination (principal); I25.10 Atherosclerotic heart disease of native coronary artery without angina pectoris; M17.11 Unilateral primary osteoarthritis, right knee; N18.30 Chronic kidney disease, stage 3 unspecified; N39.46 Mixed incontinence; M85.80 Other specified disorders of bone density and structure, unspecified site; Z78.0 Asymptomatic menopausal state; Z20.822 Contact with and (suspected) exposure to COVID-19
CPT/HCPCS: 80048; 81001; 85027; 85610; 85730; 87086; 93005; U0003; U0005; 93010

== ENCOUNTER 2021-08-07 06:29 | Day surgery (SDC) | payer MEDICARE, BC ==
[2021-08-07] MEDS ORDERED: Fentanyl 100 MCG/2 ML VIAL ONE (06:44)
[2021-08-07] MEDS ORDERED: Neomycin-Polymyxin 1 ML AMP ONE (06:47)
[2021-08-07] MEDS ORDERED: Bupivacaine 0.25% HCL 30 ML VIAL ONE (06:47)
[2021-08-07] MEDS ORDERED: CEFAZOLIN 1 GM VIAL ONE (07:32)
[2021-08-07] MEDS ORDERED: Sodium Chloride 0.9% 100 ML ONE (07:33)
[2021-08-07] MEDS ORDERED: HYDROcodone/Acetaminophen 5/325 mg Tablet ONE (11:14)
== END 2021-08-07 11:51 | disposition home or self-care (01) ==
LOC: SDC 06:29
PROVIDERS: ATTEND Urology
PROC: 01HY0MZ Insertion of Neurostimulator Lead into Peripheral Nerve, Open Approach (ICD-10-PCS; principal; 2021-08-07)
DX: N32.81 Overactive bladder (principal); N39.46 Mixed incontinence; M85.80 Other specified disorders of bone density and structure, unspecified site; I12.9 Hypertensive chronic kidney disease with stage 1 through stage 4 chronic kidney disease, or unspecified chronic kidney disease; N18.30 Chronic kidney disease, stage 3 unspecified; M17.11 Unilateral primary osteoarthritis, right knee; F17.200 Nicotine dependence, unspecified, uncomplicated; I25.10 Atherosclerotic heart disease of native coronary artery without angina pectoris; G47.33 Obstructive sleep apnea (adult) (pediatric); K21.9 Gastro-esophageal reflux disease without esophagitis; Z79.82 Long term (current) use of aspirin; Z79.899 Other long term (current) drug therapy; Z88.1 Allergy status to other antibiotic agents; Z88.2 Allergy status to sulfonamides; Z88.5 Allergy status to narcotic agent; Z91.040 Latex allergy status; Z95.5 Presence of coronary angioplasty implant and graft
CPT/HCPCS: 72220; 76000; C1897; J0690; J3010; J3490; S0020

== ENCOUNTER 2021-08-12 11:40 | Outpatient (CLI) | payer MEDICARE, BC ==
[2021-08-12 23:10] LABS: SARS-CoV-2 PCR by NAA Not Detected (NotDetected)
== END 2021-08-12 11:41 | disposition home or self-care (01) ==
LOC: LABBT 11:40
PROVIDERS: ATTEND Urology
DX: Z01.812 Encounter for preprocedural laboratory examination (principal); N39.41 Urge incontinence; N39.46 Mixed incontinence; M81.0 Age-related osteoporosis without current pathological fracture; N18.30 Chronic kidney disease, stage 3 unspecified; I25.10 Atherosclerotic heart disease of native coronary artery without angina pectoris; M17.11 Unilateral primary osteoarthritis, right knee; Z20.822 Contact with and (suspected) exposure to COVID-19
CPT/HCPCS: U0003; U0005

== ENCOUNTER 2021-08-14 06:46 | Day surgery (SDC) | payer MEDICARE, BC ==
[2021-08-05 10:23] VITALS: BMI 26.8
[2021-08-14] MEDS ORDERED: Famotidine/PF 20 mg/2ml Vial ONE (08:18)
[2021-08-14] MEDS ORDERED: Fentanyl 100 MCG/2 ML VIAL ONE (09:28)
[2021-08-14] MEDS ORDERED: Neomycin-Polymyxin 1 ML AMP ONE (09:36)
[2021-08-14] MEDS ORDERED: Bupivacaine 0.25% HCL 30 ML VIAL ONE (09:36)
[2021-08-14] MEDS ORDERED: CEFAZOLIN 1 GM VIAL ONE (09:50)
[2021-08-14] MEDS ORDERED: Sodium Chloride 0.9% 100 ML ONE (09:54)
[2021-08-14] MEDS ORDERED: Ondansetron PF 4 MG/2 ML Vial ONE (10:00)
[2021-08-14] MEDS ORDERED: PROPOFOL 200 MG/20 ML VIAL ONE (10:00)
[2021-08-14] MEDS ORDERED: Lidocaine 1% PF 5 ML VIAL ONE (10:00)
[2021-08-14] MEDS ORDERED: Dexamethasone 20 MG/5 ML VIAL ONE (10:00)
[2021-08-14] MEDS ORDERED: Succinylcholine 200 MG/10 ml SYRINGE FS ONE (10:00)
[2021-08-14] MEDS ORDERED: Glycopyrrolate 0.2 MG/ML 5 ML SYRINGE ONE (10:00)
[2021-08-14] MEDS ORDERED: Bacitracin Zinc Ointment 30 gm TUBE ONE (10:50)
== END 2021-08-14 14:00 | disposition home or self-care (01) ==
LOC: SDC 06:46
PROVIDERS: ATTEND Urology
PROC: 0JH70BZ Insertion of Single Array Stimulator Generator into Back Subcutaneous Tissue and Fascia, Open Approach (ICD-10-PCS; principal; 2021-08-14)
DX: N32.81 Overactive bladder (principal); N39.46 Mixed incontinence; I25.10 Atherosclerotic heart disease of native coronary artery without angina pectoris; K21.9 Gastro-esophageal reflux disease without esophagitis; G47.33 Obstructive sleep apnea (adult) (pediatric); N18.30 Chronic kidney disease, stage 3 unspecified; Z79.82 Long term (current) use of aspirin; Z79.899 Other long term (current) drug therapy; Z91.040 Latex allergy status; Z91.048 Other nonmedicinal substance allergy status; Z88.1 Allergy status to other antibiotic agents; Z88.2 Allergy status to sulfonamides; Z88.5 Allergy status to narcotic agent
CPT/HCPCS: 64590; C1713; C1820; C1897; J0690; J1100; J2405; J2704; J3010; J3490; S0020; S0028

== ENCOUNTER 2021-09-30 10:24 | Inpatient (IN) | payer MEDICARE, BC ==
[2021-10-01 00:31] VITALS: BMI 24.5
[2021-10-02 16:00] VITALS: BP 113/59; TEMP 97.6
== END 2021-10-02 17:24 | disposition home or self-care (01) | DRG 857 ==
LOC: ERS 10:24 → ERHOLD 15:46 → SURG B 18:30 → OBSVTOIN 10-01 17:58
PROVIDERS: ADMIT Surgery; ATTEND Surgery
PROC: 0JB80ZZ Excision of Abdomen Subcutaneous Tissue and Fascia, Open Approach (ICD-10-PCS; principal; 2021-10-01)
DX: T81.41XA Infection following a procedure, superficial incisional surgical site, initial encounter (principal); L02.211 Cutaneous abscess of abdominal wall; Y83.8 Other surgical procedures as the cause of abnormal reaction of the patient, or of later complication, without mention of misadventure at the time of the procedure; Z20.822 Contact with and (suspected) exposure to COVID-19; I25.10 Atherosclerotic heart disease of native coronary artery without angina pectoris; K21.9 Gastro-esophageal reflux disease without esophagitis; M85.80 Other specified disorders of bone density and structure, unspecified site; Z90.49 Acquired absence of other specified parts of digestive tract; Z79.82 Long term (current) use of aspirin; Z79.899 Other long term (current) drug therapy; Z95.5 Presence of coronary angioplasty implant and graft; Z88.5 Allergy status to narcotic agent; Z88.2 Allergy status to sulfonamides; Z91.040 Latex allergy status
CPT/HCPCS: 36415; 74177; 80048; 80053; 83605; 83735; 84100; 85025; 96365; 96366; 96372; 96374; 96375; C1776; G0378; J1885; J2185; J2270; J2405; J2704; J3010; J3475; J3490; J7050; Q9967; U0002

== ENCOUNTER 2021-12-04 12:26 | Outpatient (CLI) | payer MEDICARE, BC | END 2021-12-04 12:27 | disposition home or self-care (01) | LOC: BICCT 12:26 | PROVIDERS: ATTEND Student in an Organized Health Care Education/Training Program | DX: R41.89 Other symptoms and signs involving cognitive functions and awareness (principal); G93.89 Other specified disorders of brain; Z86.73 Personal history of transient ischemic attack (TIA), and cerebral infarction without residual deficits | CPT/HCPCS: 70450 ==

== ENCOUNTER 2021-12-07 12:18 | Emergency (ER) | payer MEDICARE, BC ==
[~2021-12-07 12:18] MED LIST changes: +GASTROGRAFIN 30 ML BOT ONE; +Iopamidol 370 76% 100 ML VIAL ONE; -Iopamidol-370 76% 500 ML 1 ML ONE
[2021-12-07] MEDS ORDERED: Mag-Al 1200 mg/1200 mg/30 ML UDCUP ONE (12:48)
[2021-12-07] MEDS ORDERED: Lidocaine Viscous Sol 2% 15 ml UD Cup ONE (12:48)
[2021-12-07] MEDS ORDERED: Ondansetron PF 4 MG/2 ML Vial ONE (12:48)
[2021-12-07] MEDS ORDERED: Famotidine/PF 20 mg/2ml Vial ONE (12:49)
[2021-12-07 12:55] LABS: #Basophils 0.1 thou/uL (0.0-0.2); #Eosinphils 0.2 thou/uL (0.0-0.7); #Lymphocytes 1.6 thou/uL (1.20-3.40); #Monocytes 0.8 thou/uL (0.11-0.59); %Basophils 0.9 % (0.0-1.0); %Eosinophils 2.9 % (0.0-10.0); %Lymphocytes 21.2 % (21.0-51.0); %Neutrophils 64.9 % (42.0-75.0); Hemoglobin 10.9 g/dL (12.0-16.0); Mean Corpuscular HGB CONC 33.5 g/dL (32.0-36.0); Mean Corpuscular Hemoglobin 32.4 pg (27.0-31.0); Mean Corpuscular Volume 96.7 fL (78.0-98.0); Platelet Count 201 thou/uL (130-400); RBC Distribution Width 15.2 % (11.5-14.5); Red Blood Cell (RBC) Count 3.37 mill/uL (4.20-5.40); White Blood Cell (WBC) Count 7.7 thou/uL (4.8-10.8)
[2021-12-07 13:18] LABS: ALT (SGPT) 13 U/L (8-55); AST (SGOT) 15 U/L (5-34); Albumin 3.7 g/dL (3.4-4.8); Alkaline Phosphatase 69 U/L (40-110); Anion Gap 15 mmol/L (10-20); BUN (Urea Nitrogen) 25 mg/dL (9.8-20.1); Bilirubin, Total 0.5 mg/dL (0.2-1.2); Calc. Creatinine Clearance 0 mL/min (70-130); Calcium 10.4 mg/dL (7.8-10.44); Carbon Dioxide 23 mmol/L (23-31); Chloride 105 mmol/L (98-107); Globulin 2.9 g/dL (2.4-3.5); Glucose 93 mg/dL (83-110); Potassium 3.9 mmol/L (3.5-5.1); Protein, Total 6.6 g/dL (5.8-8.1); Sodium 139 mmol/L (136-145)
== END 2021-12-07 16:10 | disposition home or self-care (01) ==
LOC: ERS 12:18
DX: T81.89XA Other complications of procedures, not elsewhere classified, initial encounter (principal); I10 Essential (primary) hypertension; K21.9 Gastro-esophageal reflux disease without esophagitis; M19.90 Unspecified osteoarthritis, unspecified site; Z79.82 Long term (current) use of aspirin; Z79.899 Other long term (current) drug therapy
CPT/HCPCS: 74177; 80053; 85025; 96374; 96375; J2405; Q9963; Q9967; S0028

== ENCOUNTER 2022-02-23 11:44 | Outpatient (CLI) | payer MEDICARE, BC ==
[~2022-02-23 11:44] MED LIST changes: -GASTROGRAFIN 30 ML BOT ONE; -Iopamidol 370 76% 100 ML VIAL ONE; +Magnevist 469MG/ML 20 ML VIAL ONE
== END 2022-02-23 11:45 | disposition home or self-care (01) ==
LOC: MRI 11:44
PROVIDERS: ATTEND Specialist
DX: H81.10 Benign paroxysmal vertigo, unspecified ear (principal); I67.89 Other cerebrovascular disease
CPT/HCPCS: 70553; A9579

== ENCOUNTER 2022-04-02 10:26 | Outpatient (CLI) | payer MEDICARE, BC | END 2022-04-02 10:27 | disposition home or self-care (01) | LOC: RAD 10:26 | PROVIDERS: ATTEND Surgery | DX: Z93.3 Colostomy status (principal); K57.30 Diverticulosis of large intestine without perforation or abscess without bleeding | CPT/HCPCS: 74280 ==

== ENCOUNTER 2022-04-15 10:19 | Outpatient (CLI) | payer MEDICARE, BC ==
[2022-04-15 12:44] LABS: Hemoglobin 11.4 g/dL (12.0-15.5)
[2022-04-15 13:11] LABS: Anion Gap 12 mmol/L (10-20); BUN (Urea Nitrogen) 17 mg/dL (9.8-20.1); Calc. Creatinine Clearance 0 mL/min (70-130); Calcium 9.9 mg/dL (7.8-10.44); Carbon Dioxide 25 mmol/L (23-31); Chloride 108 mmol/L (98-107); Cholesterol 152 mg/dl (< 200 Desired); Estimated GFR 45; Glucose 87 mg/dL (83-110); HDL Cholesterol 51 mg/dL (>60 Neg Risk); LDL Cholesterol, Calculated 91 mg/dL; Potassium 4.3 mmol/L (3.5-5.1); Sodium 141 mmol/L (136-145); Triglycerides 51 mg/dL (Less than 150)
== END 2022-04-15 10:20 | disposition home or self-care (01) ==
LOC: LABBT 10:19
PROVIDERS: ATTEND Internal Medicine Cardiovascular Disease
DX: Z01.812 Encounter for preprocedural laboratory examination (principal); N39.46 Mixed incontinence; N18.30 Chronic kidney disease, stage 3 unspecified; I25.10 Atherosclerotic heart disease of native coronary artery without angina pectoris; M17.11 Unilateral primary osteoarthritis, right knee; M85.80 Other specified disorders of bone density and structure, unspecified site; Z78.0 Asymptomatic menopausal state; Z20.822 Contact with and (suspected) exposure to COVID-19
CPT/HCPCS: 80048; 80061; 85014; 85018; 87811

== ENCOUNTER 2022-04-16 06:35 | Day surgery (SDC) | payer MEDICARE, BC ==
[2022-04-15 13:51] VITALS: BMI 26.4
[2022-04-16] MEDS ORDERED: Nitroglycerin 100MG/250ML BOT 250 ML ONE (09:00)
[2022-04-16] MEDS ORDERED: Heparin 10,000 UNITS/ 10 ML VIAL ONE (09:00)
[2022-04-16] MEDS ORDERED: Verapamil 5 MG/2 ML VIAL ONE (09:00)
[2022-04-16] MEDS ORDERED: Fentanyl 100 MCG/2 ML VIAL ONE (09:10)
[2022-04-16] MEDS ORDERED: Midazolam HCl 2 mg/2 ml Vial ONE (09:10)
[2022-04-16] MEDS ORDERED: hydrALAZINE 20 MG/ML VIAL ONE (09:48)
[2022-04-16] MEDS ORDERED: Iopamidol 370 76% 100 ML VIAL ONE (10:30)
== END 2022-04-16 13:56 | disposition home or self-care (01) ==
LOC: SDC 06:35
PROVIDERS: ATTEND Internal Medicine Cardiovascular Disease
DX: I25.10 Atherosclerotic heart disease of native coronary artery without angina pectoris (principal); I10 Essential (primary) hypertension; E78.5 Hyperlipidemia, unspecified; R00.1 Bradycardia, unspecified; Z79.82 Long term (current) use of aspirin; Z79.899 Other long term (current) drug therapy; Z20.822 Contact with and (suspected) exposure to COVID-19
CPT/HCPCS: 93458; C1769; C1887; C1894; 99152; J0360; J1644; J2250; J3010; Q9967

== ENCOUNTER 2022-05-08 08:35 | Outpatient (CLI) | payer MEDICARE, BC ==
[2022-05-08] MEDS ORDERED: Iopamidol 370 76% 100 ML VIAL ONE (10:10)
== END 2022-05-08 08:36 | disposition home or self-care (01) ==
LOC: CT 08:35
PROVIDERS: ATTEND Internal Medicine Cardiovascular Disease
DX: I65.23 Occlusion and stenosis of bilateral carotid arteries (principal); E04.2 Nontoxic multinodular goiter
CPT/HCPCS: 70498; Q9967

== ENCOUNTER 2022-05-27 11:16 | Outpatient (CLI) | payer MEDICARE, BC | END 2022-05-27 11:17 | disposition home or self-care (01) | LOC: CT 11:16 | PROVIDERS: ATTEND Family Medicine | DX: S09.90XA Unspecified injury of head, initial encounter (principal); G44.311 Acute post-traumatic headache, intractable | CPT/HCPCS: 70450 ==

== ENCOUNTER 2022-07-20 09:15 | Inpatient (IN) | payer MEDICARE, BC ==
[2022-07-22 11:31] VITALS: BMI 28.9
[2022-07-23 07:32] LABS: SARS-CoV-2 NAA Rapid Test Not Detected (NotDetected)
[2022-07-23] MEDS ORDERED: fentaNYL PF 100 MCG/2 ML SYRINGE ONE (08:59)
[2022-07-23] MEDS ORDERED: SUGAMMADEX SODIUM 200 MG/2 ML VIAL ONE (08:59)
[2022-07-23] MEDS ORDERED: cefOXitin 2 GM VIAL ONE (09:21)
[2022-07-23] MEDS ORDERED: Sodium Chloride 0.9% 100 ML ONE (09:21)
[2022-07-23] MEDS ORDERED: ePHEDrine 50 MG/ML VIAL ONE (09:39)
[2022-07-23] MEDS ORDERED: PROPOFOL 200 MG/20 ML VIAL ONE (09:39)
[2022-07-23] MEDS ORDERED: NEOSTIGMINE 3 MG/3 ML SYR 3 MG/3 ML SYRINGE ONE (09:39)
[2022-07-23] MEDS ORDERED: Albuterol HFA (OR) 200 PUFF INH ONE (09:39)
[2022-07-23] MEDS ORDERED: Dexamethasone 20 MG/5 ML VIAL ONE (09:39)
[2022-07-23] MEDS ORDERED: Rocuronium Bromide 10 MG/ML (10ML VIAL) ONE (09:39)
[2022-07-23] MEDS ORDERED: Ondansetron PF 4 MG/2 ML Vial ONE (09:39)
[2022-07-23] MEDS ORDERED: PHENYLEPHRINE-NS 100 MCG/ML 10 ML SYRINGE ONE (09:39)
[2022-07-23] MEDS ORDERED: Glycopyrrolate 0.2 MG/ML 5 ML SYRINGE ONE (09:39)
[2022-07-23] MEDS ORDERED: MINERAL OIL/WHITE PETROLATUM 3.5 GM TUBE ONE (10:00)
[2022-07-23] MEDS ORDERED: Ondansetron HCl/PF 4 MG/2 ML Vial IVP PRN (11:08)
[2022-07-23] MEDS ORDERED: Promethazine HCl 25 MG/ML VIAL IM PRN ×3 (11:08→12:12)
[2022-07-23] MEDS ORDERED: Fentanyl 100 MCG/2 ML VIAL ONE (12:03)
[2022-07-23] MEDS ORDERED: Ipratropium/Albuterol 3 ML NEB NEB PRN (12:06)
[2022-07-23] MEDS ORDERED: Ondansetron PF 4 MG/2 ML Vial IVP PRN ×2 (12:06→12:12)
[2022-07-23] MEDS ORDERED: hydrALAZINE 20 MG/ML VIAL SLOW IVP PRN (12:06)
[2022-07-23] MEDS ORDERED: diphenhydrAMINE 25 MG CAP PO PRN (12:12)
[2022-07-23] MEDS ORDERED: Naloxone HCl 0.4 mg/ml Vial IV PRN (12:12)
[2022-07-23] MEDS ORDERED: FENTANYL 500 MCG/10 ML VIAL 2,000 MCG in Sodium Chloride 0.9% 60 ML IV PRN (12:12)
[2022-07-23] MEDS ORDERED: Zolpidem Tartrate 5 MG TAB PO PRN (12:12)
[2022-07-23] MEDS ORDERED: diphenhydrAMINE 50 MG/ML VIAL IVP PRN (12:12)
[2022-07-23] MEDS ORDERED: diphenhydrAMINE 50 MG/ML VIAL IM PRN (12:12)
[2022-07-23] MEDS ORDERED: Communication Order-Pharmacy FS SCH (12:15)
[2022-07-23] MEDS ORDERED: D5 1/2 NS w/20 mEq KCL 1,000 ML ONE (12:38)
[2022-07-23] MEDS: D5 1/2 NS w/20 mEq KCL 1,000 ML IV SCH ×2 (12:38→18:37)
[2022-07-23] MEDS: Acetaminophen 325 MG TAB PO SCH ×2 (15:53→18:00)
[2022-07-23] MEDS: cefOXitin Sodium 1 GM in Sodium Chloride 0.9% 100 ML IVPB SCH (18:37)
[2022-07-23] MEDS: Donepezil HCl 10 MG TAB PO SCH (21:58)
[2022-07-23] MEDS: Famotidine/PF 20 mg/2ml Vial SLOW IVP SCH (21:58)
[2022-07-23] MEDS: Leflunomide 10 mg Tablet PO SCH (21:58)
[2022-07-23] MEDS: Famotidine 20 MG TAB PO SCH (22:00)
[2022-07-24] MEDS: Acetaminophen 325 MG TAB PO SCH ×4 (01:01→18:30)
[2022-07-24] MEDS: cefOXitin Sodium 1 GM in Sodium Chloride 0.9% 100 ML IVPB SCH (02:46)
[2022-07-24] MEDS: D5 1/2 NS w/20 mEq KCL 1,000 ML IV SCH ×3 (05:06→20:13)
[2022-07-24 05:43] LABS: Hemoglobin 11.9 g/dL (12.0-16.0); Mean Corpuscular HGB CONC 32.8 g/dL (32.0-36.0); Mean Corpuscular Hemoglobin 32.3 pg (27.0-31.0); Mean Corpuscular Volume 98.5 fl (78.0-98.0); Mean Platelet Volume 10.1 fL (7.4-10.4); Platelet Count 150 10x3/uL (130-400); RBC Distribution Width 13.6 % (11.5-14.5); Red Blood Cell (RBC) Count 3.68 mill/uL (4.20-5.40); White Blood Cell (WBC) Count 17.2 10x3/uL (4.8-10.8)
[2022-07-24 06:05] LABS: Anion Gap 11 mmol/L (10-20); BUN (Urea Nitrogen) 10 mg/dL (9.8-20.1); Calc. Creatinine Clearance 39 mL/min (70-130); Calcium 9.4 mg/dL (7.8-10.44); Carbon Dioxide 20 mmol/L (23-31); Chloride 107 mmol/L (98-107); Estimated GFR 45; Glucose 154 mg/dL (83-110); Potassium 4.5 mmol/L (3.5-5.1); Sodium 133 mmol/L (136-145)
[2022-07-24 06:07] LABS: Band 38 % (5-11); Lymphocytes 8 % (21-51); MDiff Complete? YES; Metamyelocyte 1 % (0-0); Monocytes 2 % (0-10); Neutrophil 51 % (42-75); Platelet Morphology Comment Appears Adequate; RBC Morphology Normal
[2022-07-24] MEDS ORDERED: Amlodipine 5 MG TAB PO SCH (09:00)
[2022-07-24] MEDS: Amlodipine 5 MG TAB PO SCH (09:32)
[2022-07-24] MEDS: Losartan 25 MG TAB PO SCH (09:37)
[2022-07-24] MEDS: Famotidine/PF 20 mg/2ml Vial SLOW IVP SCH (20:11)
[2022-07-24] MEDS: Famotidine 20 MG TAB PO SCH (20:12)
[2022-07-24] MEDS: Donepezil HCl 10 MG TAB PO SCH (20:12)
[2022-07-24] MEDS: Leflunomide 10 mg Tablet PO SCH (20:12)
[2022-07-25] MEDS: Acetaminophen 325 MG TAB PO SCH ×5 (00:06→23:13)
[2022-07-25 05:40] LABS: Hemoglobin 9.7 g/dL (12.0-16.0); Mean Corpuscular HGB CONC 32.9 g/dL (32.0-36.0); Mean Corpuscular Hemoglobin 32.5 pg (27.0-31.0); Mean Corpuscular Volume 98.8 fl (78.0-98.0); RBC Distribution Width 13.7 % (11.5-14.5); Red Blood Cell (RBC) Count 2.97 mill/uL (4.20-5.40); White Blood Cell (WBC) Count 13.7 10x3/uL (4.8-10.8)
[2022-07-25 05:41] LABS: #Basophils 0.1 thou/uL (0.0-0.2); #Eosinphils 0.1 thou/uL (0.0-0.7); #Lymphocytes 1.3 thou/uL (1.20-3.40); #Monocytes 0.6 thou/uL (0.11-0.59); #Neutrophils 11.8 thou/uL (1.40-6.50); %Basophils 0.4 % (0.0-1.0); %Eosinophils 0.6 % (0.0-10.0); %Lymphocytes 9.2 % (21.0-51.0); %Monocytes 4.2 % (0.0-10.0); %Neutrophils 85.7 % (42.0-75.0); Mean Platelet Volume 9.8 fL (7.4-10.4); Platelet Count 114 10x3/uL (130-400)
[2022-07-25 06:29] LABS: Anion Gap 8 mmol/L (10-20); BUN (Urea Nitrogen) 11 mg/dL (9.8-20.1); Calc. Creatinine Clearance 50 mL/min (70-130); Calcium 9.3 mg/dL (7.8-10.44); Carbon Dioxide 21 mmol/L (23-31); Chloride 111 mmol/L (98-107); Estimated GFR 61; Glucose 106 mg/dL (83-110); Potassium 4.3 mmol/L (3.5-5.1); Sodium 136 mmol/L (136-145)
[2022-07-25] MEDS: Losartan 25 MG TAB PO SCH (08:08)
[2022-07-25] MEDS: Amlodipine 5 MG TAB PO SCH (08:08)
[2022-07-25] MEDS ORDERED: Fentanyl 100 MCG/2 ML VIAL SLOW IVP PRN (09:38)
[2022-07-25] MEDS: D5 1/2 NS w/20 mEq KCL 1,000 ML IV SCH ×3 (09:51→17:15)
[2022-07-25] MEDS: traMADol HCl 50 MG TAB PO PRN ×3 (11:18→23:13)
[2022-07-25] MEDS: Famotidine/PF 20 mg/2ml Vial SLOW IVP SCH (19:34)
[2022-07-25] MEDS: Leflunomide 10 mg Tablet PO SCH (19:37)
[2022-07-25] MEDS: Donepezil HCl 10 MG TAB PO SCH (19:37)
[2022-07-25] MEDS: Famotidine 20 MG TAB PO SCH (19:37)
[2022-07-26] MEDS: D5 1/2 NS w/20 mEq KCL 1,000 ML IV SCH ×3 (02:31→23:46)
[2022-07-26] MEDS: traMADol HCl 50 MG TAB PO PRN ×2 (05:56→12:02)
[2022-07-26] MEDS: Acetaminophen 325 MG TAB PO SCH ×3 (05:56→17:06)
[2022-07-26] MEDS: Losartan 25 MG TAB PO SCH (08:00)
[2022-07-26] MEDS: Amlodipine 5 MG TAB PO SCH (08:01)
[2022-07-26] MEDS ORDERED: FLU VACC QS2022-23(65YR UP)/PF 240 MCG/0.7 ML SYRINGE IM ONE (09:00)
[2022-07-26] MEDS: Famotidine/PF 20 mg/2ml Vial SLOW IVP SCH (20:19)
[2022-07-26] MEDS: Leflunomide 10 mg Tablet PO SCH (20:20)
[2022-07-26] MEDS: Famotidine 20 MG TAB PO SCH (20:20)
[2022-07-26] MEDS: Donepezil HCl 10 MG TAB PO SCH (20:20)
[2022-07-27] MEDS: Acetaminophen 325 MG TAB PO SCH ×3 (00:20→11:48)
[2022-07-27] MEDS: D5 1/2 NS w/20 mEq KCL 1,000 ML IV SCH ×2 (06:42→18:20)
[2022-07-27] MEDS: Amlodipine 5 MG TAB PO SCH (09:00)
[2022-07-27] MEDS: Losartan 25 MG TAB PO SCH (09:00)
[2022-07-27] MEDS: traMADol HCl 50 MG TAB PO PRN (09:01)
[2022-07-27] MEDS: Acetaminophen 325 MG TAB PO PRN (20:17)
[2022-07-27] MEDS: Leflunomide 10 mg Tablet PO SCH (20:18)
[2022-07-27] MEDS: Famotidine/PF 20 mg/2ml Vial SLOW IVP SCH (20:18)
[2022-07-27] MEDS: Donepezil HCl 10 MG TAB PO SCH (20:18)
[2022-07-27] MEDS: Famotidine 20 MG TAB PO SCH (20:18)
[2022-07-28] MEDS: D5 1/2 NS w/20 mEq KCL 1,000 ML IV SCH ×3 (00:41→19:07)
[2022-07-28] MEDS: Losartan 25 MG TAB PO SCH (10:00)
[2022-07-28] MEDS: Acetaminophen 325 MG TAB PO PRN ×2 (10:00→20:51)
[2022-07-28] MEDS: Amlodipine 5 MG TAB PO SCH (10:01)
[2022-07-28] MEDS: Famotidine 20 MG TAB PO SCH (20:48)
[2022-07-28] MEDS: Leflunomide 10 mg Tablet PO SCH (20:48)
[2022-07-28] MEDS: Donepezil HCl 10 MG TAB PO SCH (20:48)
[2022-07-28] MEDS: Famotidine/PF 20 mg/2ml Vial SLOW IVP SCH (20:48)
[2022-07-29] MEDS: D5 1/2 NS w/20 mEq KCL 1,000 ML IV SCH ×2 (04:39→08:34)
[2022-07-29] MEDS: Amlodipine 5 MG TAB PO SCH (08:33)
[2022-07-29] MEDS: Losartan 25 MG TAB PO SCH (08:33)
[2022-07-29] MEDS: Acetaminophen 325 MG TAB PO PRN ×2 (10:43→21:23)
[2022-07-29] MEDS: traMADol HCl 50 MG TAB PO PRN (14:33)
[2022-07-29 17:00] LABS: #Eosinphils 0.1 thou/uL (0.0-0.7); #Lymphocytes 0.8 thou/uL (1.20-3.40); #Monocytes 0.6 thou/uL (0.11-0.59); #Neutrophils 8.4 thou/uL (1.40-6.50); %Basophils 0.3 % (0.0-1.0); %Eosinophils 1.4 % (0.0-10.0); %Lymphocytes 8.3 % (21.0-51.0); %Monocytes 6.1 % (0.0-10.0); %Neutrophils 83.9 % (42.0-75.0); Hemoglobin 11.4 g/dL (12.0-16.0); Mean Corpuscular HGB CONC 33.1 g/dL (32.0-36.0); Mean Corpuscular Hemoglobin 32.2 pg (27.0-31.0); Mean Corpuscular Volume 97.4 fl (78.0-98.0); Mean Platelet Volume 8.7 fL (7.4-10.4); Platelet Count 219 10x3/uL (130-400); RBC Distribution Width 13.4 % (11.5-14.5); Red Blood Cell (RBC) Count 3.55 mill/uL (4.20-5.40)
[2022-07-29 17:24] LABS: Anion Gap 14 mmol/L (10-20); BUN (Urea Nitrogen) 11 mg/dL (9.8-20.1); Calc. Creatinine Clearance 41 mL/min (70-130); Calcium 10.7 mg/dL (7.8-10.44); Carbon Dioxide 23 mmol/L (23-31); Chloride 104 mmol/L (98-107); Estimated GFR 48; Glucose 112 mg/dL (83-110); Potassium 4.5 mmol/L (3.5-5.1); Sodium 136 mmol/L (136-145)
[2022-07-29] MEDS: Leflunomide 10 mg Tablet PO SCH (21:23)
[2022-07-29] MEDS: Famotidine 20 MG TAB PO SCH (21:23)
[2022-07-29] MEDS: Donepezil HCl 10 MG TAB PO SCH (21:23)
[2022-07-29] MEDS: Famotidine/PF 20 mg/2ml Vial SLOW IVP SCH (21:26)
[2022-07-29] MEDS ORDERED: Mag-Al 1200 mg/1200 mg/30 ML UDCUP PO PRN (21:51)
[2022-07-30] MEDS: D5 1/2 NS w/20 mEq KCL 1,000 ML IV SCH ×2 (01:24→08:40)
[2022-07-30] MEDS: Losartan 25 MG TAB PO SCH (08:35)
[2022-07-30] MEDS: Amlodipine 5 MG TAB PO SCH (08:35)
[2022-07-30] MEDS: Acetaminophen 325 MG TAB PO PRN ×2 (08:38→15:26)
[2022-07-30 12:32] VITALS: BP 132/79; TEMP 98.3
== END 2022-07-30 18:10 | DRG 330 ==
LOC: SURG A 07-23 06:38 → SJJU 07-23 15:12
PROVIDERS: ADMIT Surgery; ATTEND Surgery
PROC: 0DQE0ZZ Repair Large Intestine, Open Approach (ICD-10-PCS; principal; 2022-07-23)
DX: Z43.3 Encounter for attention to colostomy (principal); K92.1 Melena; R53.81 Other malaise; I10 Essential (primary) hypertension; Z20.822 Contact with and (suspected) exposure to COVID-19; Z88.1 Allergy status to other antibiotic agents; Z88.2 Allergy status to sulfonamides; Z88.8 Allergy status to other drugs, medicaments and biological substances; Z91.040 Latex allergy status; Z90.49 Acquired absence of other specified parts of digestive tract; Z98.890 Other specified postprocedural states; Z95.5 Presence of coronary angioplasty implant and graft; Z98.42 Cataract extraction status, left eye; Z98.41 Cataract extraction status, right eye; Z79.82 Long term (current) use of aspirin; Z79.899 Other long term (current) drug therapy
CPT/HCPCS: 36415; 36416; 80048; 83036; 85025; 87811; 88307; 93005; 93010; C1713; J0694; J1100; J1650; J2405; J2704; J3010; J3480; J3490; S0028; U0002

== ENCOUNTER 2022-07-20 09:45 | Outpatient (CLI) | payer MEDICARE, BC ==
[2022-07-20 10:50] LABS: #Basophils 0.1 10x3/uL (0.0-0.2); #Eosinphils 0.3 10x3/uL (0.0-0.5); #Monocytes 0.4 10x3/uL (0.0-1.1); #Neutrophils 2.3 10x3/uL (1.5-8.4); %Basophils 2.4 % (0.0-2.0); %Lymphocytes 25.2 % (18.0-47.0); %Monocytes 10.6 % (0.0-10.0); %Neutrophils 55.6 % (40.0-75.0); Hemoglobin 12.2 g/dL (12.0-15.5); Mean Corpuscular HGB CONC 33.9 g/dL (32.0-36.0); Mean Corpuscular Hemoglobin 31.3 pg (27.0-33.0); Mean Corpuscular Volume 92.3 fl (81.6-98.3); Mean Platelet Volume 11.8 fl (7.4-10.4); Platelet Count 169 10x3/uL (150-450); RBC Distribution Width 15.1 % (11.5-14.5); White Blood Cell (WBC) Count 4.2 10x3/uL (3.5-10.5)
[2022-07-20 11:11] LABS: Anion Gap 12 mmol/L (10-20); BUN (Urea Nitrogen) 11 mg/dL (9.8-20.1); Calc. Creatinine Clearance 0 mL/min (70-130); Calcium 10.2 mg/dL (7.8-10.44); Carbon Dioxide 24 mmol/L (23-31); Chloride 108 mmol/L (98-107); Estimated GFR 47; Glucose 97 mg/dL (83-110); Potassium 3.9 mmol/L (3.5-5.1); Sodium 140 mmol/L (136-145)
[2022-07-20 14:23] LABS: Hemoglobin A1c 5.2 % (4.0-6.0)
== END 2022-07-20 09:46 | disposition home or self-care (01) ==
LOC: LABBT 09:45
PROVIDERS: ATTEND Surgery
DX: Z01.818 Encounter for other preprocedural examination (principal); K94.03 Colostomy malfunction
CPT/HCPCS: 80048; 83036; 85025; 93005; 93010

== ENCOUNTER 2022-09-08 17:21 | Observation (INO) | payer MEDICARE, BC ==
[~2022-09-08 17:21] MED LIST changes: +Iopamidol-370 76% 500 ML 1 ML ONE; -Magnevist 469MG/ML 20 ML VIAL ONE
[2022-09-08 17:57] LABS: #Basophils 0.1 thou/uL (0.0-0.2); #Eosinphils 0.3 thou/uL (0.0-0.7); #Lymphocytes 1.9 thou/uL (1.20-3.40); #Monocytes 0.6 thou/uL (0.11-0.59); #Neutrophils 5.3 thou/uL (1.40-6.50); %Eosinophils 3.5 % (0.0-10.0); %Lymphocytes 23.6 % (21.0-51.0); %Monocytes 7.1 % (0.0-10.0); %Neutrophils 64.8 % (42.0-75.0); Hemoglobin 11.4 g/dL (12.0-16.0); Mean Corpuscular HGB CONC 33.2 g/dL (32.0-36.0); Mean Corpuscular Hemoglobin 32.4 pg (27.0-31.0); Mean Corpuscular Volume 97.6 fl (78.0-98.0); Mean Platelet Volume 9.7 fL (7.4-10.4); Platelet Count 147 10x3/uL (130-400); RBC Distribution Width 14.1 % (11.5-14.5); Red Blood Cell (RBC) Count 3.52 mill/uL (4.20-5.40); White Blood Cell (WBC) Count 8.2 10x3/uL (4.8-10.8)
[2022-09-08 18:26] LABS: ALT (SGPT) 8 U/L (8-55); AST (SGOT) 18 U/L (5-34); Albumin 3.9 g/dL (3.4-4.8); Alkaline Phosphatase 115 U/L (40-110); Anion Gap 14 mmol/L (10-20); BUN (Urea Nitrogen) 10 mg/dL (9.8-20.1); Bilirubin, Total 0.4 mg/dL (0.2-1.2); Calc. Creatinine Clearance 0 mL/min (70-130); Calcium 9.5 mg/dL (7.8-10.44); Carbon Dioxide 22 mmol/L (23-31); Chloride 107 mmol/L (98-107); Estimated GFR 42; Globulin 2.7 g/dL (2.4-3.5); Glucose 91 mg/dL (83-110); Lipase 12 U/L (8-78); Protein, Total 6.6 g/dL (5.8-8.1); Sodium 139 mmol/L (136-145)
[2022-09-08] MEDS ORDERED: Pantoprazole 40 MG VIAL ONE (19:20)
[2022-09-08] MEDS ORDERED: Acetaminophen 325 MG TAB PO PRN (21:26)
[2022-09-08] MEDS ORDERED: Senokot S 8.6-50 MG TAB PO PRN (21:26)
[2022-09-08] MEDS ORDERED: Mag-Al 1200 mg/1200 mg/30 ML UDCUP ONE (22:17)
[2022-09-08 23:18] VITALS: BMI 27.3
[2022-09-09 00:05] LABS: Troponin I 0.011 ng/mL (< 0.028)
[2022-09-09 04:45] LABS: #Basophils 0.1 thou/uL (0.0-0.2); #Eosinphils 0.2 thou/uL (0.0-0.7); #Lymphocytes 1.5 thou/uL (1.20-3.40); #Monocytes 0.6 thou/uL (0.11-0.59); #Neutrophils 4.2 thou/uL (1.40-6.50); %Basophils 1.2 % (0.0-1.0); %Eosinophils 3.6 % (0.0-10.0); %Lymphocytes 22.7 % (21.0-51.0); %Monocytes 8.4 % (0.0-10.0); Mean Corpuscular HGB CONC 33.2 g/dL (32.0-36.0); Mean Corpuscular Hemoglobin 32.2 pg (27.0-31.0); Mean Platelet Volume 9.7 fL (7.4-10.4); Platelet Count 135 10x3/uL (130-400); Red Blood Cell (RBC) Count 3.11 mill/uL (4.20-5.40); White Blood Cell (WBC) Count 6.6 10x3/uL (4.8-10.8)
[2022-09-09 05:20] LABS: Anion Gap 13 mmol/L (10-20); BUN (Urea Nitrogen) 8 mg/dL (9.8-20.1); Calc. Creatinine Clearance 43 mL/min (70-130); Carbon Dioxide 21 mmol/L (23-31); Chloride 109 mmol/L (98-107); Cholesterol 86 mg/dl (< 200 Desired); Estimated GFR 54; Glucose 94 mg/dL (83-110); HDL Cholesterol 42 mg/dL (>60 Neg Risk); LDL Cholesterol, Calculated 33 mg/dL; Potassium 3.6 mmol/L (3.5-5.1); Sodium 139 mmol/L (136-145); Triglycerides 53 mg/dL (Less than 150)
[2022-09-09 08:34] VITALS: TEMP 98
[2022-09-09] MEDS ORDERED: Losartan 25 MG TAB PO SCH (09:00)
[2022-09-09] MEDS ORDERED: Aspirin Chewable 81 MG TAB PO SCH (09:00)
[2022-09-09] MEDS ORDERED: Amlodipine 5 MG TAB PO SCH (09:00)
[2022-09-09] MEDS ORDERED: Sodium Chloride 0.9% 500 ML IV SCH (11:45)
[2022-09-09] MEDS ORDERED: PROPOFOL 200 MG/20 ML VIAL ONE (13:32)
[2022-09-09 15:51] VITALS: BP 165/69
[2022-09-09] MEDS ORDERED: Donepezil HCl 10 MG TAB PO SCH (21:00)
[2022-09-09] MEDS ORDERED: Leflunomide 10 mg Tablet PO SCH (21:00)
== END 2022-09-09 16:56 | disposition home or self-care (01) ==
LOC: ERS 17:21 → 2NO 21:37
PROVIDERS: ADMIT Internal Medicine; ATTEND Internal Medicine
PROC: 0DJ08ZZ Inspection of Upper Intestinal Tract, Via Natural or Artificial Opening Endoscopic (ICD-10-PCS; principal; 2022-09-09)
DX: K44.9 Diaphragmatic hernia without obstruction or gangrene (principal); K22.89 Other specified disease of esophagus; R07.89 Other chest pain; I10 Essential (primary) hypertension; F03.90 Unspecified dementia, unspecified severity, without behavioral disturbance, psychotic disturbance, mood disturbance, and anxiety; K21.9 Gastro-esophageal reflux disease without esophagitis; M19.90 Unspecified osteoarthritis, unspecified site; Z79.69 Long term (current) use of other immunomodulators and immunosuppressants; Z79.899 Other long term (current) drug therapy; Z88.1 Allergy status to other antibiotic agents; Z88.2 Allergy status to sulfonamides; Z88.5 Allergy status to narcotic agent; Z88.8 Allergy status to other drugs, medicaments and biological substances; Z91.040 Latex allergy status; Z95.5 Presence of coronary angioplasty implant and graft; Z98.890 Other specified postprocedural states; Z20.822 Contact with and (suspected) exposure to COVID-19
CPT/HCPCS: 43235; 71045; 71275; 74174; 80048; 80053; 80061; 83690; 84484 ×3; 85025 ×2; 93005; 94760; 96374; 97139; 99285; G0378 ×3; U0003; U0005; 36415; C9113; J2704; J7030; Q9967

== ENCOUNTER 2023-01-25 16:24 | Emergency (ER) | payer MEDICARE, BC | END 2023-01-25 17:54 | disposition home or self-care (01) | LOC: ERS 16:24 | DX: S52.571A Other intraarticular fracture of lower end of right radius, initial encounter for closed fracture (principal); K21.9 Gastro-esophageal reflux disease without esophagitis; Z79.899 Other long term (current) drug therapy; W18.30XA Fall on same level, unspecified, initial encounter | CPT/HCPCS: 29125 ==

== ENCOUNTER 2023-03-18 13:04 | Inpatient (IN) | payer MEDICARE, BC ==
[2023-03-18 13:38] LABS: #Basophils 0.1 thou/uL (0.0-0.2); #Eosinphils 0.2 thou/uL (0.0-0.7); #Monocytes 0.4 thou/uL (0.11-0.59); %Basophils 1.4 % (0.0-1.0); %Eosinophils 4.6 % (0.0-10.0); %Lymphocytes 24.8 % (21.0-51.0); %Monocytes 8.4 % (0.0-10.0); %Neutrophils 60.4 % (42.0-75.0); Hematocrit 31.8 % (36.0-47.0); Hemoglobin 10.4 g/dL (12.0-16.0); Mean Corpuscular HGB CONC 32.7 g/dL (32.0-36.0); Mean Corpuscular Hemoglobin 30.1 pg (27.0-31.0); Mean Corpuscular Volume 92.2 fl (78.0-98.0); Platelet Count 194 10x3/uL (130-400); RBC Distribution Width 15.1 % (11.5-14.5); Red Blood Cell (RBC) Count 3.45 mill/uL (4.20-5.40)
[2023-03-18 13:49] LABS: PTT 29.7 sec (22.9-36.1); Prothrombin Time 14.1 sec (12.0-14.7)
[2023-03-18 13:51] LABS: INR-International Normal Ratio 1.1
[2023-03-18 14:05] LABS: Albumin 3.8 g/dL (3.4-4.8); Anion Gap 10 mmol/L (10-20); BUN (Urea Nitrogen) 11 mg/dL (9.8-20.1); Bilirubin, Total 0.4 mg/dL (0.2-1.2); Calc. Creatinine Clearance 0 mL/min (70-130); Calcium 9.5 mg/dL (7.8-10.44); Carbon Dioxide 24 mmol/L (23-31); Chloride 105 mmol/L (98-107); Estimated GFR 42; Glucose 120 mg/dL (83-110); Potassium 4.1 mmol/L (3.5-5.1); Protein, Total 6.6 g/dL (5.8-8.1); Sodium 135 mmol/L (136-145)
[2023-03-18 14:06] LABS: ALT (SGPT) 10 U/L (8-55); AST (SGOT) 16 U/L (5-34); Alkaline Phosphatase 130 U/L (40-110); CK (CPK) 64 U/L (29-168); Globulin 2.8 g/dL (2.4-3.5)
[2023-03-18 14:11] LABS: Troponin I 0.016 ng/mL (< 0.028)
[2023-03-18] MEDS ORDERED: Iopamidol-370 76% 500 ML MDV (1 ML CHARGE) ONE (15:05)
[2023-03-18] MEDS ORDERED: Aspirin Chewable 81 MG TAB ONE (15:43)
[2023-03-18] MEDS ORDERED: Acetaminophen 325 MG TAB PO PRN (16:05)
[2023-03-18] MEDS ORDERED: Ondansetron ODT 4 MG TAB PO PRN (16:05)
[2023-03-18 18:28] VITALS: BMI 27.1
[2023-03-18] MEDS: Famotidine 20 MG TAB PO SCH (20:10)
[2023-03-18] MEDS: Atorvastatin Calcium 40 MG TAB PO SCH (20:10)
[2023-03-19 05:40] LABS: #Basophils 0.1 thou/uL (0.0-0.2); #Eosinphils 0.3 thou/uL (0.0-0.7); #Monocytes 0.6 thou/uL (0.11-0.59); #Neutrophils 2.8 thou/uL (1.40-6.50); %Basophils 1.6 % (0.0-1.0); %Lymphocytes 26.6 % (21.0-51.0); %Monocytes 10.9 % (0.0-10.0); %Neutrophils 55.7 % (42.0-75.0); Hematocrit 30.4 % (36.0-47.0); Hemoglobin 9.8 g/dL (12.0-16.0); Mean Corpuscular HGB CONC 32.2 g/dL (32.0-36.0); Mean Corpuscular Hemoglobin 29.9 pg (27.0-31.0); Mean Corpuscular Volume 92.7 fl (78.0-98.0); Platelet Count 179 10x3/uL (130-400); RBC Distribution Width 15.4 % (11.5-14.5); Red Blood Cell (RBC) Count 3.28 mill/uL (4.20-5.40)
[2023-03-19 06:14] LABS: Albumin 3.4 g/dL (3.4-4.8); Anion Gap 9 mmol/L (10-20); BUN (Urea Nitrogen) 10 mg/dL (9.8-20.1); Bilirubin, Total 0.4 mg/dL (0.2-1.2); Calc. Creatinine Clearance 41 mL/min (70-130); Calcium 9.4 mg/dL (7.8-10.44); Carbon Dioxide 25 mmol/L (23-31); Chloride 108 mmol/L (98-107); Estimated GFR 50; Glucose 87 mg/dL (83-110); Potassium 3.9 mmol/L (3.5-5.1); Protein, Total 5.7 g/dL (5.8-8.1); Sodium 138 mmol/L (136-145)
[2023-03-19 06:15] LABS: ALT (SGPT) 7 U/L (8-55); AST (SGOT) 11 U/L (5-34); Alkaline Phosphatase 113 U/L (40-110); Cardiac Risk 1.9 (Less than 4.5); Cholesterol 96 mg/dl (< 200 Desired); Globulin 2.3 g/dL (2.4-3.5); HDL Cholesterol 50 mg/dL (>60 Neg Risk); LDL Cholesterol, Calculated 39 mg/dL; Triglycerides 35 mg/dL (Less than 150)
[2023-03-19] MEDS: Aspirin 81 mg Enteric Coated Tablet PO SCH (09:19)
[2023-03-19] MEDS: Famotidine 20 MG TAB PO SCH (20:03)
[2023-03-19] MEDS: Atorvastatin Calcium 40 MG TAB PO SCH (20:03)
[2023-03-19] MEDS ORDERED: hydrALAZINE 20 MG/ML VIAL SLOW IVP PRN (20:15)
[2023-03-20] MEDS: Aspirin 81 mg Enteric Coated Tablet PO SCH (10:04)
[2023-03-20 11:38] VITALS: BP 136/74; TEMP 98.2
[2023-03-21] MEDS ORDERED: Losartan 25 MG TAB PO SCH (09:00)
[2023-03-21] MEDS ORDERED: Amlodipine 5 MG TAB PO SCH (09:00)
== END 2023-03-20 13:10 | disposition home or self-care (01) | DRG 312 ==
LOC: ERS 13:04 → 2SE 15:48 → OBSVTOIN 03-19 15:06
PROVIDERS: ADMIT Internal Medicine; ATTEND Internal Medicine Critical Care Medicine
DX: R55 Syncope and collapse (principal); S52.91XA Unspecified fracture of right forearm, initial encounter for closed fracture; N17.9 Acute kidney failure, unspecified; I10 Essential (primary) hypertension; F03.90 Unspecified dementia, unspecified severity, without behavioral disturbance, psychotic disturbance, mood disturbance, and anxiety; M54.9 Dorsalgia, unspecified; G89.29 Other chronic pain; K44.9 Diaphragmatic hernia without obstruction or gangrene; D63.8 Anemia in other chronic diseases classified elsewhere; S62.101A Fracture of unspecified carpal bone, right wrist, initial encounter for closed fracture; K21.00 Gastro-esophageal reflux disease with esophagitis, without bleeding; Z91.040 Latex allergy status; Z88.2 Allergy status to sulfonamides; Z88.1 Allergy status to other antibiotic agents; Z88.5 Allergy status to narcotic agent; Z88.8 Allergy status to other drugs, medicaments and biological substances; Z93.3 Colostomy status; Z98.890 Other specified postprocedural states
CPT/HCPCS: 36415; 36416; 70450; 70496; 70498; 71045; 80053; 80061; 82550; 84484; 85025; 85610; 85730; 93005; 93306; 94760; G0378; Q9967

== ENCOUNTER 2023-04-05 10:29 | Outpatient (CLI) | payer MEDICARE, BC | END 2023-04-05 10:30 | disposition home or self-care (01) | LOC: BICRAD 10:29 | PROVIDERS: ATTEND Family Medicine | DX: M54.6 Pain in thoracic spine (principal); M47.814 Spondylosis without myelopathy or radiculopathy, thoracic region | CPT/HCPCS: 72070 ==

== ENCOUNTER 2023-04-23 09:55 | Day surgery (SDC) | payer MEDICARE, BC ==
[2023-04-19 11:04] VITALS: BMI 27.0
[2023-04-23] MEDS ORDERED: Dexamethasone 20 MG/5 ML VIAL ONE (12:58)
[2023-04-23] MEDS ORDERED: Ondansetron PF 4 MG/2 ML Vial ONE (12:58)
[2023-04-23] MEDS ORDERED: PROPOFOL 200 MG/20 ML VIAL ONE (12:58)
[2023-04-23] MEDS ORDERED: EPINEPHrine 1 MG/ML AMP ONE (13:36)
[2023-04-23] MEDS ORDERED: Lidocaine 2% PF 5 ML VIAL ONE ×2 (13:36→14:01)
[2023-04-23] MEDS ORDERED: Bupivacaine PF 0.5% 30 ML VIAL ONE (13:36)
[2023-04-23] MEDS ORDERED: fentaNYL PF 100 MCG/2 ML SYRINGE ONE (13:50)
[2023-04-23] MEDS ORDERED: CEFAZOLIN 2 GM VIAL ONE (13:52)
[2023-04-23] MEDS ORDERED: Sodium Chloride 0.9% 100 ML ONE (13:52)
[2023-04-23] MEDS ORDERED: fentaNYL 50 mcg/mL 1 mL Vial ONE ×2 (14:59→15:35)
[2023-04-23] MEDS ORDERED: hydrALAZINE 20 MG/ML VIAL ONE (15:22)
== END 2023-04-23 16:48 | disposition home or self-care (01) ==
LOC: SDC 09:55
PROVIDERS: ATTEND Surgery
PROC: 0HB7XZZ Excision of Abdomen Skin, External Approach (ICD-10-PCS; principal; 2023-04-23)
DX: T14.8XXA Other injury of unspecified body region, initial encounter (principal); K21.9 Gastro-esophageal reflux disease without esophagitis; I25.10 Atherosclerotic heart disease of native coronary artery without angina pectoris; I10 Essential (primary) hypertension; F41.9 Anxiety disorder, unspecified; E07.1 Dyshormogenetic goiter; G47.33 Obstructive sleep apnea (adult) (pediatric); M85.80 Other specified disorders of bone density and structure, unspecified site; Z98.890 Other specified postprocedural states; Z79.899 Other long term (current) drug therapy; Z88.8 Allergy status to other drugs, medicaments and biological substances; Z88.2 Allergy status to sulfonamides; Z88.1 Allergy status to other antibiotic agents; Z91.041 Radiographic dye allergy status
CPT/HCPCS: 11042; 87070; 87075; 87205; J0360; J3010; 88304; J0171; J1100; J2001; J2405; J2704; J3490; S0020

== ENCOUNTER 2023-04-30 08:14 | Outpatient (CLI) | payer MEDICARE, BC ==
[2023-06-02] MEDS ORDERED: Magnevist 469MG/ML 20 ML VIAL ONE (09:21)
== END 2023-04-30 08:15 | disposition home or self-care (01) ==
LOC: MRI 08:14
PROVIDERS: ATTEND Psychiatry & Neurology Neurology
DX: R41.3 Other amnesia (principal); M54.6 Pain in thoracic spine; S22.050A Wedge compression fracture of T5-T6 vertebra, initial encounter for closed fracture
CPT/HCPCS: 70553; 72146; A9579

== ENCOUNTER 2023-07-26 22:07 | Emergency (ER) | payer MEDICARE, BC ==
[2023-07-26 23:31] LABS: #Basophils 0.1 thou/uL (0.0-0.2); #Eosinphils 0.1 thou/uL (0.0-0.7); #Monocytes 0.5 thou/uL (0.11-0.59); #Neutrophils 4.5 thou/uL (1.40-6.50); %Basophils 0.9 % (0.0-1.0); %Eosinophils 2.2 % (0.0-10.0); %Lymphocytes 17.5 % (21.0-51.0); %Monocytes 8.4 % (0.0-10.0); %Neutrophils 70.5 % (42.0-75.0); Hematocrit 37.2 % (36.0-47.0); Hemoglobin 12.5 g/dL (12.0-16.0); Mean Corpuscular HGB CONC 33.6 g/dL (32.0-36.0); Mean Corpuscular Hemoglobin 31.6 pg (27.0-31.0); Mean Corpuscular Volume 93.9 fl (78.0-98.0); Mean Platelet Volume 11.2 fL (7.4-10.4); Platelet Count 175 10x3/uL (130-400); RBC Distribution Width 14.6 % (11.5-14.5); Red Blood Cell (RBC) Count 3.96 mill/uL (4.20-5.40); White Blood Cell (WBC) Count 6.4 10x3/uL (4.8-10.8)
[2023-07-26 23:54] LABS: ALT (SGPT) 25 U/L (8-55); AST (SGOT) 28 U/L (5-34); Albumin 4.2 g/dL (3.4-4.8); Alkaline Phosphatase 119 U/L (40-110); Anion Gap 15 mmol/L (10-20); BUN (Urea Nitrogen) 14 mg/dL (9.8-20.1); Bilirubin, Total 0.6 mg/dL (0.2-1.2); Calc. Creatinine Clearance 0 mL/min (70-130); Calcium 10.3 mg/dL (7.8-10.44); Carbon Dioxide 23 mmol/L (23-31); Chloride 105 mmol/L (98-107); Estimated GFR 42; Globulin 2.4 g/dL (2.4-3.5); Glucose 106 mg/dL (83-110); Magnesium 2.1 mg/dL (1.6-2.6); Potassium 3.9 mmol/L (3.5-5.1); Protein, Total 6.6 g/dL (5.8-8.1); Sodium 139 mmol/L (136-145)
[2023-07-27 00:02] LABS: Bilirubin Negative (Negative); Blood, Urine Negative (Negative); CAUTI Indications for Culture Dysuria,urgency,freq; Clarity Clear (Clear); Glucose, Urine (Dipstick) Normal (Negative); Ketone, Urine 20 mg/dL (Negative); Leukocyte 25 Leu/uL (Negative); Nitrite Negative (Negative); Protein, Urine (Dipstick) 10 mg/dL (Neg-Trace); RBC/HPF 0-3 HPF (0-3); Specific Gravity, Urine 1.017 (1.002-1.036); Squamous Epithelial 0-3 HPF (0-3); Urobilinogen Normal mg/dL (Less than 2); pH, Urine 8.5 (5.0-9.0)
[2023-07-27 00:04] LABS: Troponin I Less than 0.010 ng/mL (< 0.028)
[2023-07-27 00:19] LABS: Bacteria/HPF 1+ HPF (None Seen)
[2023-07-27 00:21] LABS: Urine Culture Reflex No No
== END 2023-07-27 01:30 | disposition home or self-care (01) ==
LOC: ERS 22:07
DX: I44.0 Atrioventricular block, first degree (principal); R53.1 Weakness; R11.0 Nausea; I25.10 Atherosclerotic heart disease of native coronary artery without angina pectoris; I10 Essential (primary) hypertension; E78.5 Hyperlipidemia, unspecified; K21.9 Gastro-esophageal reflux disease without esophagitis; Z79.899 Other long term (current) drug therapy
CPT/HCPCS: 36415; 71045; 80053; 81001; 83735; 83880; 84443; 84484; 85025; 93005; 94760

== ENCOUNTER 2025-02-07 08:59 | Outpatient (CLI) | payer OTHER ==
[2025-02-07 09:44] LABS: Estimated GFR - POC 50.0
[2025-02-07] MEDS ORDERED: Iopamidol 370 76% 100 ML VIAL ONE (09:56)
== END 2025-02-07 09:00 | disposition home or self-care (01) ==
LOC: CT 08:59
PROVIDERS: ATTEND Nurse Practitioner Family
DX: R09.89 Other specified symptoms and signs involving the circulatory and respiratory systems (principal); J90 Pleural effusion, not elsewhere classified
CPT/HCPCS: 36415; 70498; 82565; Q9967